=== PATIENT | female | born 1940 | race Caucasian/White ===

== ENCOUNTER 2023-01-05 17:07 | Inpatient (IN) ==
[2023-01-05] MEDS ORDERED: MoRPHine SULFATE 4 MG/ML 1 ML CARP\\VIAL IV PRN (17:23)
--- NOTE | 2023-01-05 17:24 | Emergency Department Note ---
Impression & Plan Closed left hip fracture, Hip pain, Ground-level fall ED Provider Note NAME: MUNDO BISWAS AGE: 82 SEX: F : 1940 ARRIVES VIA: Ambulance INFORMANT: Patient, ED PROVIDER(S): Frederic Ruiz MD CHIEF COMPLAINT: Fall, hip pain MEDICAL DECISION MAKING: Patient did present due to concern for fall and associated hip pain. IV was established blood work was obtained. Patient was ordered IV pain medication. The patient does have an allergy to morphine thus was given IV fentanyl. Patient did receive IV pain medication. The patient has a normal white count hemoglobin and platelet count. Kidney function is grossly un remarkable. COVID-negative. Patient did not sound to have significant head strike but given that patient's age CT of the head was also ordered. CT of the head is negative. Patient does have nondisplaced intertrochanteric fracture of the left femur. I did inform the patient as well as the patient's family member at bedside of the findings. I did speak with the on-call hospitalist service Dr. Gonzalez and the patient was admitted to the medicine service Prior /Outside records reviewed: None Differential diagnosis: Fracture, subluxation, dislocation, contusion, ligamentous injury, neurovas cular, compartment syndrome, rhabdomyolysis, as well as other pathologies. Diagnostics, as interpreted by me: ECG: Normal sinus rhythm, rate of 70 normal intervals normal axis no ST elevations, T wave version V2 noted. Cardiac monitoring: An order was placed for continuous cardiac monitoring. The monitor shows a rate of 75 with sinus rhythm. Patient was placed on pulse oximetry Medical decision rules: None Imaging studies: See below I informally reviewed the patient's left hip x-ray which does show a left intertrochanteric fracture. HPI: Patient presents due to concern for ground-level fall. The patient states that she was at home as she was trying to go get things for the birds outdoors and slipped in her clogs on a hardwood floor and fell on her left side. Patient denies any chest pains or shortness of breath. The patient does not think that she struck her head but was unsure. Patient denies any current chest pains or shortness of breath. No nausea vomiting or diarrhea. The patient did receive IV fentanyl prior to arrival. Patient states that her pain is improved but it is worse if she shifts around her to bed. Patient denies any LOC. PAST MEDICAL HISTORY: See Below PAST SURGICAL HISTORY: See Below SOCIAL HISTORY: See Below HOME MEDICATIONS: See Below ALLERGIES: See Below VITALS: See Below PHYSICAL EXAMINATION: GENERAL: NAD, non-toxic. EYE EXAM: Normal conjunctiva. PERRL, no anisocoria and EOM's grossly intact w/o pain. NECK: Supple, no nuchal rigidity, no adenopathy, non-tender. No signs of meningismus. FROM of the neck with good chin to chest and neck extension. No stridor. LUNGS: Clear to auscultation. Normal chest wall mechanics. HEART: NSR, no MRG. ABDOMEN: Abdomen soft, non-tender, no masses, no rebound or guarding. BACK: No CVA TTP. SKIN: No rashes and no bruising. UPPER EXTREMITIES: Upper extremities are grossly normal. LOWER EXTREMITIES: Decreased range of motion of left lower extremity, pain noted over the left hip, neurovascular intact distally several skin tears noted but no obvious laceration that required repair to the bilateral lower extremities. No significant reproducible pain to the knees shins or feet or ankles bilaterally. Neurovascular intact. NEURO EXAM: A&O x3, cranial nerves II-XII grossly intact, normal speech, moves all 4 extremities. 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 Required: No Beliefs That Will Affect Care: None Current Living Situation: Spouse Current Living Situation Comment: Lives at home with disabled Other Information That Helps Us Care for You: No Feels Safe at Home: Yes Safety Concerns: Feels Safe At This Time Assistive Devices: None Allergies Allergies Allergy/AdvReac Type Severity Reaction Status Date / Time vancomycin Allergy Rash Verified 01/05/23 18:49 lisinopril AdvReac Severe FACIAL Verified 01/07/23 14:06 SWELLING Home Meds Home Medications Medication Instructions Recorded Confirmed aspirin 81 mg capsule 81 mg PO DAILY 01/05/23 01/05/23 losartan 100 mg tablet 100 mg PO QAM 01/05/23 01/05/23 nifedipine 60 mg tablet,extended 60 mg PO QPM 01/05/23 01/05/23 release 24 hr pantoprazole 20 mg tablet,delayed 20 mg PO QAM 01/05/23 01/05/23 release simvastatin 40 mg tablet 40 mg PO HS 01/05/23 01/05/23 Results & Data (ED) Vital Signs Vital Signs - 24 hr 01/05/23 17:11 Pulse Rate 77 Home Medications Current Medication List: was personally reviewed by me Laboratory Data Attestation: I reviewed the patient's lab results. 01/12/23 08:01 01/12/23 08:01 Lab Results 01/05/23 01/05/23 01/05/23 Range/Units 17:16 17:16 17:16 WBC 7.95 (4.8-10.8) K/ul RBC 4.14 L (4.20-5.40) M/uL Hgb 12.7 (12.0-16.0) g/dl Hct 38.6 (37.0-47.0) % MCV 93.2 (80.0-100.0) fL MCH 30.7 (25.0-34.0) pg MCHC 32.9 (32.0-36.0) g/dL RDW Std Deviation 55.4 H (36.4-46.3) fL RDW Coeff of Ministerio 16.3 H (11.5-14.5) % Plt Count 373 (130-400) K/uL MPV 9.3 L (9.4-12.4) fL Immature Gran % (Auto) 0.1 % Neut % (Auto) 50.7 % Lymph % (Auto) 31.6 % [place] % (Auto) 7.3 % Eos % (Auto) 9.8 % Baso % (Auto) 0.5 % Neut # (Auto) 4.03 (1.40-6.50) K/uL Lymph # (Auto) 2.51 (1.2-3.4) K/uL [place] # (Auto) 0.58 (0.11-0.59) K/uL Eos # (Auto) 0.78 H (0-0.50) K/uL Baso # (Auto) 0.04 (0-0.2) K/uL Immature Gran # (Auto) 0.01 (0.01-0.20) K/uL PT 10.3 (9.0-12.0) Seconds INR 0.9 (0.9-1.1) APTT 24.2 (21.0-31.0) Seconds PTT Ratio 0.9 Sodium 140 (136-145) mmol/L Potassium 4.0 (3.5-5.1) mmol/L Chloride 106 (98-107) mmol/L Carbon Dioxide 26 (21-32) mmol/L Anion Gap 8 (3-11) BUN 20 (6-23) mg/dl Creatinine 0.77 (0.6-1.2) mg/dl Est Cr Clr Drug Dosing 56.6 ml/min Est GFR ( Amer) 82.8 ml/min Est GFR (Non-Af Amer) 71.4 ml/min BUN/Creatinine Ratio 26.0 H (10-20) Glucose 110 H (70-99(Fasting)) mg/dl Calcium 8.5 L (8.6-10.3) mg/dl Total Bilirubin 0.3 (0.2-1.0) mg/dl AST 18 (13-39) U/L ALT 12 (7-52) U/L Alkaline Phosphatase 85 (34-104) U/L Total Protein 6.9 (6.0-8.3) gm/dl Albumin 3.8 (3.4-5.0) gm/dl Globulin 3.1 (2.5-4.0) gm/dl Albumin/Globulin Ratio 1.2 (0.9-2) SARS-CoV-2, RNA, NAAT (NEGATIVE) 01/05/23 Range/Units 17:28 WBC (4.8-10.8) K/ul RBC (4.20-5.40) M/uL Hgb (12.0-16.0) g/dl Hct (37.0-47.0) % MCV (80.0-100.0) fL MCH (25.0-34.0) pg MCHC (32.0-36.0) g/dL RDW Std Deviation (36.4-46.3) fL RDW Coeff of Ministerio (11.5-14.5) % Plt Count (130-400) K/uL MPV (9.4-12.4) fL Immature Gran % (Auto) % Neut % (Auto) % Lymph % (Auto) % [place] % (Auto) % Eos % (Auto) % Baso % (Auto) % Neut # (Auto) (1.40-6.50) K/uL Lymph # (Auto) (1.2-3.4) K/uL [place] # (Auto) (0.11-0.59) K/uL Eos # (Auto) (0-0.50) K/uL Baso # (Auto) (0-0.2) K/uL Immature Gran # (Auto) (0.01-0.20) K/uL PT (9.0-12.0) Seconds INR (0.9-1.1) APTT (21.0-31.0) Seconds PTT Ratio Sodium (136-145) mmol/L Potassium (3.5-5.1) mmol/L Chloride (98-107) mmol/L Carbon Dioxide (21-32) mmol/L Anion Gap (3-11) BUN (6-23) mg/dl Creatinine (0.6-1.2) mg/dl Est Cr Clr Drug Dosing ml/min Est GFR ( Amer) ml/min Est GFR (Non-Af Amer) ml/min BUN/Creatinine Ratio (10-20) Glucose (70-99(Fasting)) mg/dl Calcium (8.6-10.3) mg/dl Total Bilirubin (0.2-1.0) mg/dl AST (13-39) U/L ALT (7-52) U/L Alkaline Phosphatase (34-104) U/L Total Protein (6.0-8.3) gm/dl Albumin (3.4-5.0) gm/dl Globulin (2.5-4.0) gm/dl Albumin/Globulin Ratio (0.9-2) SARS-CoV-2, RNA, NAAT NEGATIVE (NEGATIVE) Administered Medications Aspirin (Aspirin 81 Mg Ectab) 81 mg PO BID [facility] Stop: 02/06/23 20:59 Last Admin: 01/12/23 09:07 Dose: 81 mg Documented By: Admin: 01/11/23 20:58 Dose: 81 mg Documented By: Admin: 01/11/23 08:55 Dose: 81 mg Documented By: Admin: 01/10/23 20:34 Dose: 81 mg Documented By: Admin: 01/10/23 07:27 Dose: 81 mg Documented By: Admin: 01/09/23 21:19 Dose: 81 mg Documented By: Admin: 01/09/23 08:33 Dose: 81 mg Documented By: Admin: 01/08/23 20:49 Dose: 81 mg Documented By: Admin: 01/08/23 08:21 Dose: 81 mg Documented By: Admin: 01/07/23 21:13 Dose: 81 mg Documented By: KIRA Furosemide (Furosemide 20 Mg Tab) [facility] [place]: 01/15/23 15:14 Last Admin: 01/12/23 16:18 Dose: 20 mg Documented By: SAMUEL Losartan Potassium (Losartan Potassium 50 Mg Tab) 50 mg PO [facility] Stop: 02/11/23 08:59 Last Admin: 01/12/23 09:12 Dose: Not Given Documented By: SAMUEL Metoprolol Tartrate (Metoprolol Tartrate 25 Mg Tab) 12.5 mg PO BID [facility] Stop: 02/11/23 08:59 Last Admin: 01/12/23 09:08 Dose: 12.5 mg Documented By: SAMUEL Ondansetron HCl (Ondansetron Inj 2 Mg/Ml 2 Ml Vial) 4 mg IV Q6H PRN PRN Reason: Nausea Stop: 02/04/23 20:56 Last Admin: 01/08/23 08:29 Dose: 4 mg Documented By: Admin: 01/07/23 09:46 Dose: 4 mg Documented By: Admin: 01/07/23 02:55 Dose: 4 mg Documented By: Admin: 01/06/23 20:06 Dose: 4 mg Documented By: Admin: 01/06/23 11:53 Dose: 4 mg Documented By: LIA Pantoprazole Sodium (Pantoprazole 40 Mg Tab) 40 mg PO QAM DARYL Stop: 02/05/23 08:59 Last Admin: 01/12/23 09:07 Dose: 40 mg Documented By: Admin: 01/11/23 08:55 Dose: 40 mg Documented By: Admin: 01/10/23 07:27 Dose: 40 mg Documented By: Admin: 01/09/23 08:32 Dose: 40 mg Documented By: Admin: 01/08/23 08:22 Dose: 40 mg Documented By: Admin: 01/07/23 09:45 Dose: 40 mg Documented By: Admin: 01/06/23 09:30 Dose: 40 mg Documented By: LIA Senna/Docusate Sodium (Docusate Sodium/Senna 50/8.6mg Tab) 2 tab PO DARYL Stop: 02/04/23 20:59 Last Admin: 01/11/23 20:58 Dose: 2 tab Documented By: Admin: 01/10/23 20:34 Dose: 2 tab Documented By: Admin: 01/09/23 21:19 Dose: 2 tab Documented By: Admin: 01/08/23 20:50 Dose: 2 tab Documented By: Admin: 01/07/23 21:08 Dose: 2 tab Documented By: Admin: 01/06/23 20:06 Dose: 2 tab Documented By: Admin: 01/05/23 21:35 Dose: Not Given Documented By: DINA Simvastatin (Simvastatin 40 Mg Tab) 40 mg PO DARYL Stop: 02/04/23 20:59 Last Admin: 01/11/23 20:58 Dose: 40 mg Documented By: Admin: 01/10/23 20:35 Dose: 40 mg Documented By: Admin: 01/09/23 21:20 Dose: 40 mg Documented By: Admin: 01/08/23 20:49 Dose: 40 mg Documented By: Admin: 01/07/23 21:09 Dose: 40 mg Documented By: Admin: 01/06/23 20:07 Dose: 40 mg Documented By: Admin: 01/05/23 21:36 Dose: 40 mg Documented By: DINA Vitamin D (Cholecalciferol 5,000 Units 125 Mcg Tab) 5,000 units PO QAM DARYL Stop: 02/08/23 08:59 Last Admin: 01/12/23 09:08 Dose: 5,000 units Documented By: Admin: 01/11/23 08:55 Dose: 5,000 units Documented By: Admin: 01/10/23 07:27 Dose: 5,000 units Documented By: Admin: 01/09/23 08:33 Dose: 5,000 units Documented By: SANDIP Discontinued Medications Acetaminophen (Acetaminophen 500 Mg Tab) 1,000 mg PO Q8H DARYL Stop: 02/05/23 04:59 Last Admin: 01/11/23 13:05 Dose: 1,000 mg Documented By: Admin: 01/11/23 05:23 Dose: 1,000 mg Documented By: Admin: 01/10/23 20:33 Dose: 1,000 mg Documented By: Admin: 01/10/23 12:25 Dose: 1,000 mg Documented By: Admin: 01/10/23 05:17 Dose: 1,000 mg Documented By: Admin: 01/09/23 21:19 Dose: 1,000 mg Documented By: Admin: 01/09/23 12:19 Dose: 1,000 mg Documented By: Admin: 01/09/23 05:31 Dose: 1,000 mg Documented By: Admin: 01/08/23 20:48 Dose: 1,000 mg Documented By: Admin: 01/08/23 12:54 Dose: 1,000 mg Documented By: Admin: 01/08/23 05:46 Dose: 1,000 mg Documented By: Admin: 01/07/23 21:06 Dose: 1,000 mg Documented By: Admin: 01/07/23 13:20 Dose: 1,000 mg Documented By: Admin: 01/07/23 05:51 Dose: 1,000 mg Documented By: Admin: 01/06/23 20:07 Dose: 1,000 mg Documented By: Admin: 01/06/23 13:42 Dose: 1,000 mg Documented By: Admin: 01/06/23 05:39 Dose: 1,000 mg Documented By: KSC Bupivacaine HCl (Bupivacaine 0.25% Pf 30 Ml Vial) Confirm Administered Dose 30 ml .ROUTE .STK-MED ONE Stop: 01/07/23 14:17 Last Admin: 01/07/23 15:43 Dose: Not Given Documented By: SAC Calcium Carbonate (Calcium Carbonate 500 Mg Chewable Tab) 1,500 mg PO NOW STA Stop: 01/07/23 16:52 Last Admin: 01/07/23 17:31 Dose: 500 mg Documented By: SED Enoxaparin Sodium (Enoxaparin Inj 40 Mg/0.4 Ml Syr) 40 mg SQ HS DARYL Stop: 02/04/23 20:59 Last Admin: 01/05/23 21:35 Dose: 40 mg Documented By: KSC Fentanyl Citrate (Fentanyl Citrate Pf 100 Mcg/2 Ml Vial) 50 mcg IV Q1H PRN PRN Reason: Pain Stop: 01/19/23 17:39 Last Admin: 01/05/23 19:03 Dose: 50 mcg Documented By: GELA Furosemide (Furosemide Inj 20 Mg/2 Ml Vial) 20 mg IV ONE ONE Stop: 01/11/23 10:33 Last Admin: 01/11/23 11:14 Dose: 20 mg Documented By: JESSICA Acetaminophen (Ofirmev) 1,000 mg in 100 mls @ 400 mls/hr IV NOW STA Stop: 01/05/23 17:54 Last Infusion: 01/05/23 18:46 Dose: 0 mls/hr Documented By: Admin: 01/05/23 18:16 Dose: 400 mls/hr Documented By: OSVALDO Cefazolin Sodium (Ancef 2000mg) 2,000 mg in 15 mls @ 3.75 mls/min IV PREOP DARYL; Protocol Stop: 01/08/23 05:59 Last Admin: 01/07/23 15:01 Dose: 3.75 mls/min Documented By: [id number] Cefazolin Sodium (Ancef 2000mg) 2,000 mg in 15 mls @ 3.75 mls/min IV Q8H DARYL; Protocol Stop: 01/08/23 06:18 Last Admin: 01/08/23 05:47 Dose: 3.75 mls/min Documented By: Admin: 01/07/23 21:15 Dose: 3.75 mls/min Documented By: RES Sodium Chloride (Nss 1000ml) 1,000 mls @ 80 mls/hr IV .[id number] DARYL Stop: 01/08/23 17:14 Last Infusion: 01/08/23 22:15 Dose: 0 mls/hr Documented By: Admin: 01/08/23 09:31 Dose: 80 mls/hr Documented By: Infusion: 01/08/23 07:45 Dose: 80 mls/hr Documented By: Admin: 01/08/23 05:47 Dose: Not Given Documented By: Admin: 01/07/23 19:15 Dose: 80 mls/hr Documented By: KIRA Magnesium Sulfate/Dextrose (Magnesium Sulfate / D5w) 1 gm in 100 mls @ 50 mls/hr IV ONE ONE Stop: 01/10/23 00:29 Last Infusion: 01/10/23 00:57 Dose: 0 mls/hr Documented By: Admin: 01/09/23 22:51 Dose: 50 mls/hr Documented By: MCKAY Famotidine 20 mg/ Syringe 5 mls @ 2.5 mls/min IV NOW STA Stop: 01/09/23 23:03 Last Admin: 01/09/23 23:17 Dose: 2.5 mls/min Documented By: MCKAY Potassium Chloride/Sodium Chloride (Normal Saline W/20 Meq Kcl) 20 meq in 1,000 mls @ 80 mls/hr IV .[id number] ONE; Protocol Stop: 01/10/23 11:45 Last Infusion: 01/10/23 12:19 Dose: 0 mls/hr Documented By: Infusion: 01/10/23 07:55 Dose: 80 mls/hr Documented By: Infusion: 01/10/23 07:22 Dose: 0 mls/hr Documented By: Admin: 01/10/23 00:06 Dose: 80 mls/hr Documented By: MCKAY Cefepime HCl 2,000 mg/ Syringe 20 mls @ 5 mls/min IV Q8H DARYL; Protocol Stop: 01/12/23 00:44 Last Admin: 01/11/23 16:38 Dose: 5 mls/min Documented By: Admin: 01/11/23 08:57 Dose: 5 mls/min Documented By: Admin: 01/11/23 01:31 Dose: 5 mls/min Documented By: Admin: 01/10/23 17:34 Dose: 5 mls/min Documented By: Admin: 01/10/23 08:07 Dose: 5 mls/min Documented By: Admin: 01/10/23 00:59 Dose: 5 mls/min Documented By: MCKAY Losartan Potassium (Losartan Potassium 50 Mg Tab) 100 mg PO QAM DARYL Stop: 02/05/23 08:59 Last Admin: 01/11/23 08:55 Dose: Not Given Documented By: Admin: 01/10/23 09:43 Dose: 100 mg Documented By: Admin: 01/09/23 08:32 Dose: 100 mg Documented By: Admin: 01/08/23 08:21 Dose: 100 mg Documented By: Admin: 01/07/23 09:44 Dose: 100 mg Documented By: Admin: 01/06/23 09:09 Dose: 100 mg Documented By: LIA Morphine Sulfate (Morphine Sulfate 2 Mg/Ml Carp) 2 mg IV Q3H PRN PRN Reason: Pain (1,2,3,4,5) & Pre PT Stop: 01/19/23 20:56 Last Admin: 01/05/23 21:36 Dose: 2 mg Documented By: DINA Morphine Sulfate (Morphine Sulfate 4 Mg/Ml 1 Ml Carp\Vial) 4 mg IV Q3H PRN PRN Reason: Pain (6,7,8,9,10) Stop: 01/19/23 20:56 Last Admin: 01/07/23 02:55 Dose: 4 mg Documented By: Admin: 01/06/23 09:09 Dose: 4 mg Documented By: Admin: 01/06/23 03:05 Dose: 4 mg Documented By: DINA Nifedipine (Nifedipine Extended Rel 30 Mg Tabcr) 60 mg PO QPM DARYL Stop: 02/04/23 20:59 Last Admin: 01/11/23 20:57 Dose: 60 mg Documented By: Admin: 01/10/23 20:34 Dose: 60 mg Documented By: Admin: 01/09/23 21:20 Dose: 60 mg Documented By: Admin: 01/08/23 20:50 Dose: 60 mg Documented By: Admin: 01/07/23 21:08 Dose: 60 mg Documented By: Admin: 01/06/23 20:07 Dose: 60 mg Documented By: Admin: 01/05/23 21:35 Dose: 60 mg Documented By: KSC Ondansetron HCl (Ondansetron Inj 2 Mg/Ml 2 Ml Vial) 4 mg IV ONCE PRN PRN Reason: PACU Use Only-Nausea/Vomiting Stop: 01/07/23 21:48 Last Admin: 01/07/23 16:16 Dose: 4 mg Documented By: SED Oxycodone HCl (Oxycodone Hcl Ir 5 Mg Tab (Immediate Release)) 5 mg PO Q4H PRN PRN Reason: Severe Pain (Scale 7, 8, 9,10) Stop: 01/19/23 20:56 Last Admin: 01/08/23 08:22 Dose: 5 mg Documented By: Admin: 01/08/23 04:18 Dose: 5 mg Documented By: Admin: 01/07/23 09:46 Dose: 5 mg Documented By: Admin: 01/06/23 20:07 Dose: 5 mg Documented By: Admin: 01/06/23 16:09 Dose: 5 mg Documented By: Admin: 01/06/23 05:38 Dose: 5 mg Documented By: KSC Potassium Chloride (Potassium Chloride Crtab 20 Meq Tabcr) 40 meq PO NOW STA Stop: 01/09/23 22:30 Last Admin: 01/09/23 22:50 Dose: 40 meq Documented By: GCB Potassium Chloride (Potassium Chloride Crtab 20 Meq Tabcr) 40 meq PO ONE ONE Stop: 01/12/23 09:11 Last Admin: 01/12/23 10:11 Dose: 40 meq Documented By: SMM Promethazine HCl (Promethazine Hcl Inj 25 Mg/Ml 1 Ml Vial) Confirm Administered Dose 25 mg .ROUTE .STK-MED ONE Stop: 01/07/23 17:09 Last Admin: 01/07/23 17:15 Dose: 6.25 mg Documented By: SED Tramadol HCl (Tramadol Hcl 50 Mg Tablet) 100 mg PO Q4H PRN PRN Reason: Pain Stop: 02/07/23 16:44 Last Admin: 01/10/23 07:26 Dose: 100 mg Documented By: Admin: 01/08/23 18:13 Dose: 100 mg Documented By: CMV Imaging Data Radiologist's Impression: Head CT 01/05/23 17:23 Exam(s): CT HEAD Without Contrast EXAM: CT Head Without Intravenous Contrast CLINICAL HISTORY: Reason for exam: fall hip/head pain. TECHNIQUE: Axial computed tomography images of the head/brain without intravenous contrast. Automated exposure control was utilized for the study. A dose lowering technique was utilized adhering to the principles of ALARA. COMPARISON: No relevant prior studies available. FINDINGS: Brain: No hemorrhage. No apparent acute cortical infarct. Involutional changes with small vessel disease. No mass lesion or midline shift. Ventricles: No hydrocephalus. Bones/joints: No acute fracture. Soft tissues: Unremarkable. Sinuses: No acute sinusitis. Mastoid air cells: No mastoid effusion. Orbits: Cataract surgery. IMPRESSION: No acute intracranial process. Electronically signed by: Ellen Jackson M.D. 01/05/23 19:08 PM Hip X-Ray 01/05/23 17:23 XR hip LT min 2V CLINICAL HISTORY: Left hip pain following fall. COMPARISON: None FINDINGS: There is an acute nondisplaced intertrochanteric fracture of the left femur. No additional fractures are identified. There are no osseous lesions. IMPRESSION: Acute nondisplaced intertrochanteric fracture of the left femur. ACT 112: Negative or not required by law. Electronically signed by: Flakito Pryor M.D. 01/05/2023 6:28 PM Discharge Plan Visit Data Chief Complaint: Hip Pain Stated Complaint: LEFT HIP PAIN, FELL ED Provider: Frederic Ruiz Discharge Problem: Closed left hip fracture, Hip pain, Ground-level fall Patient Disposition: Admitted As Inpatient Discharge Instructions Interventions: ED Discharge Assessment Last Done: 01/05/23 20:30
[2023-01-05 17:35] LABS: Basophils # (auto) 0.04 K/uL (0-0.2); Basophils % (auto) 0.5 %; Eosinophils # (auto) 0.78 K/uL (0-0.50); Eosinophils % (auto) 9.8 %; Hematocrit (blood only) 38.6 % (37.0-47.0); Hemoglobin 12.7 g/dl (12.0-16.0); Immature Granulocytes # (auto) 0.01 K/uL (0.01-0.20); Immature Granulocytes % (auto) 0.1 %; Lymphocytes # (auto) 2.51 K/uL (1.2-3.4); Lymphocytes % (auto) 31.6 %; Mean Corpuscular Hemoglobin 30.7 pg (25.0-34.0); Mean Corpuscular Hgb Conc 32.9 g/dL (32.0-36.0); Mean Corpuscular Volume 93.2 fL (80.0-100.0); Mean Platelet Volume 9.3 fL (9.4-12.4); Monocytes # (auto) 0.58 K/uL (0.11-0.59); Monocytes % (auto) 7.3 %; Neutrophils # (auto) 4.03 K/uL (1.40-6.50); Neutrophils % (auto) 50.7 %; Platelet Count 373 K/uL (130-400); RDW Coefficient of Variation 16.3 % (11.5-14.5); RDW Standard Deviation 55.4 fL (36.4-46.3); Red Blood Count 4.14 M/uL (4.20-5.40); White Blood Count 7.95 K/ul (4.8-10.8)
[2023-01-05] MEDS ORDERED: fentaNYL citrate PF 100 MCG/2 ML VIAL IV PRN (17:40)
[2023-01-05] MEDS ORDERED: ACETAMINOPHEN 1,000 MG/100 ML VIAL IV STA (17:40)
[2023-01-05 17:51] LABS: Albumin Globulin Ratio 1.2 (0.9-2); Albumin Level 3.8 gm/dl (3.4-5.0); Bilirubin,Total 0.3 mg/dl (0.2-1.0); Calcium 8.5 mg/dl (8.6-10.3); Creatinine Clr Calc Pharmacy 56.6 ml/min; Est GFR (African American) 82.8 ml/min; Est GFR (Non-African American) 71.4 ml/min; Globulin 3.1 gm/dl (2.5-4.0); Total Protein 6.9 gm/dl (6.0-8.3)
[2023-01-05 18:08] LABS: INR 0.9 (0.9-1.1); Partial Thromboplastin Ratio 0.9; Partial Thromboplastin Time 24.2 Seconds (21.0-31.0); Prothrombin Time 10.3 Seconds (9.0-12.0)
--- NOTE | 2023-01-05 18:29 | XRay Report ---
XR hip LT min 2V CLINICAL HISTORY: Left hip pain following fall. COMPARISON: None FINDINGS: There is an acute nondisplaced intertrochanteric fracture of the left femur. No additional fractures are identified. There are no osseous lesions. IMPRESSION: Acute nondisplaced intertrochanteric fracture of the left femur. ACT 112: Negative or not required by law. Electronically signed by: Flakito Pryor M.D. 01/05/2023 6:28 PM
--- NOTE | 2023-01-05 18:51 | History & Physical Report ---
Date of Service January 05, 2023 Assessment & Plan (1) Closed left hip fracture: Plan: Left intertrochanteric fracture after fall from a standing height. 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 She can climb a flight of stairs and regularly does laundry, vacuuming, etc without any concerning symptoms. She has had no prior reactions to anesthesia. She had a history of a provoked blood clot in the past when she was in her twenties and had no other issues charlene-operatively from this. Medications, labwork and EKG reviewed. She has an acceptable risk for perioperative complications given her age, but is otherwise healthy. She does have an increased risk of postoperative bleeding given baby aspirin use, which is being held. Cont standard DVT prophylaxis perioperatively. (2) HTN (hypertension): Plan: chronic, at goal. Recently changed from ACEI to losartan last week given ongoing issues with facial swelling thought to be an allergic reaction. This h as resolved. (3) COPD (chronic obstructive pulmonary disease): Plan: chronic, stable. Not typically on oxygen. No respiratory symptoms. She is quit from cigarettes after a 60 pack year smoking history. Declines inhaler therapy. (4) GERD (gastroesophageal reflux disease): Plan: chronic, stable. Cont pantoprazole per home regimen. DVT proph: Lovenox Full Code Dispo- med surg floor Her daughter was at bedside and assessment and plans were explained to she and the patient. All questions were answered to their satifaction. Jeimy Gonzalez DO [facility] Hospitalist History of Present Illness Chief Complaint: left hip pain Primary Care Provider: Nick Adamse 82 yo F presents after a fall from standing height at home and subsequent left hip fracture. On her indoor porch and slipped in her clogs on her hardwood floor. 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 She experienced no LOC. She denies any recent chest pain, shortness of breath, UTI symptoms, abd pain or other issues. Did she hit her head? What is her typical functional status? Recently switched from lisinopril to losartan Allergies Allergy/AdvReac Type Severity Reaction Status Date / Time vancomycin Allergy Rash Verified 01/05/23 18:49 lisinopril AdvReac Severe facial Uncoded 01/05/23 19:41 swelling Home Medications Medication Instructions Recorded Confirmed Type aspirin 81 mg capsule 81 mg PO DAILY 01/05/23 01/05/23 History losartan 100 mg tablet 100 mg PO QAM 01/05/23 01/05/23 History nifedipine 60 mg tablet,extended 60 mg PO QPM 01/05/23 01/05/23 History release 24 hr pantoprazole 20 mg tablet,delayed 20 mg PO QAM 01/05/23 01/05/23 History release simvastatin 40 mg tablet 40 mg PO HS 01/05/23 01/05/23 History Past Med/Surg History Medical History COPD (chronic obstructive pulmonary disease) GERD (gastroesophageal reflux disease) HTN (hypertension) Surgical History S/P appy S/P TETE (total abdominal hysterectomy) Status post right foot surgery Family History Mother Brain tumor Social History Smoking Status: Former smoker Tobacco Type: Cigarettes Hx Alcohol Use: Yes Preferred Language: Sinhala Current Living Situation: Spouse Feels Safe at Home: Yes Review of Systems Review of Systems: All systems were reviewed and negative except as indicated on HPI above. Physical Exam Physical Exam: CONSTITUTIONAL: WNWD, vitals as above, generally well-appearing, NAD EYES: EOMI bilaterally, PERRL, normal conjunctivae, no scleral icterus ENT: external ear and nose normal, oropharynx clear, no TM abnormality, no maxillary or ethmoid sinus tenderness NECK: trachea midline, no lymphadenopathy, normal thyroid RESPIRATORY: clear to auscultation bilaterally, no crackles, rales or wheezes, normal respiratory effort CARDIOVASCULAR: regular rate and rhythm, S1 and 2 heard without murmurs, gallops or rubs, no JVD, no peripheral edema CHEST: inspection of chest was normal GASTROINTESTINAL: normal bowel sounds, soft, nontender,ND , no guarding MUSCULOSKELETAL: strength 5/5 throughout, head is normocephalic and atraumatic, neck supple, normal palpation of chest wall without tenderness SKIN: warm and dry, no rashes NEUROLOGIC: patellar DTRs 2+ bilat. PERRL, EOMI, no facial palsy, no dysarthria. Touch, pain and proprioception normal. CN 2-12 grossly intact, no sensory deficit, normal cognition, normal speech, no tremor PSYCHIATRIC: alert cooperative and oriented to person, place and time. Euthymic mood, makes good eye contact, language grossly intact, recent and remote memory grossly intact. Results & Data Results & Data Vital Signs (Past 12 Hours) Vital Signs Temp Pulse Pulse Resp BP BP Pulse Ox 01/05/23 18:15 75 16 131/58 L 97 01/05/23 17:20 36.9 C 79 16 142/71 H 90 01/05/23 17:11 77 O2 Del Method O2 Flow Rate 01/05/23 18:15 Nasal Cannula 2 01/05/23 17:20 Room Air 01/05/23 17:11 Laboratory Results Short CBC 01/05/23 Range/Units 17:16 WBC 7.95 (4.8-10.8) K/ul Hgb 12.7 (12.0-16.0) g/dl Hct 38.6 (37.0-47.0) % Plt Count 373 (130-400) K/uL BMP 01/05/23 17:16 Sodium 140 Potassium 4.0 Chloride 106 Carbon Dioxide 26 BUN 20 Creatinine 0.77 Glucose 110 H Calcium 8.5 L Liver Function 01/05/23 Range/Units 17:16 Total Bilirubin 0.3 (0.2-1.0) mg/dl AST 18 (13-39) U/L ALT 12 (7-52) U/L Alkaline Phosphatase 85 (34-104) U/L Albumin 3.8 (3.4-5.0) gm/dl Diagnostic Findings Hip X-Ray 01/05/23 17:23 XR hip LT min 2V CLINICAL HISTORY: Left hip pain following fall. COMPARISON: None FINDINGS: There is an acute nondisplaced intertrochanteric fracture of the left femur. No additional fractures are identified. There are no osseous lesions. IMPRESSION: Acute nondisplaced intertrochanteric fracture of the left femur. ACT 112: Negative or not required by law. Electronically signed by: Flakito Pryor M.D. 01/05/2023 6:28 PM Code Status & VTE Plan VTE Prophylaxis Plan VTE Prophylaxis will be ordered: Yes
--- NOTE | 2023-01-05 19:08 | CT Scan Report ---
Exam(s): CT HEAD Without Contrast EXAM: CT Head Without Intravenous Contrast CLINICAL HISTORY: Reason for exam: fall hip/head pain. TECHNIQUE: Axial computed tomography images of the head/brain without intravenous contrast. Automated exposure control was utilized for the study. A dose lowering technique was utilized adhering to the principles of ALARA. COMPARISON: No relevant prior studies available. FINDINGS: Brain: No hemorrhage. No apparent acute cortical infarct. Involutional changes with small vessel disease. No mass lesion or midline shift. Ventricles: No hydrocephalus. Bones/joints: No acute fracture. Soft tissues: Unremarkable. Sinuses: No acute sinusitis. Mastoid air cells: No mastoid effusion. Orbits: Cataract surgery. IMPRESSION: No acute intracranial process. Electronically signed by: Ellen Jackson M.D. 01/05/23 19:08 PM
--- NOTE | 2023-01-05 19:39 | Communication Note ---
Date of Service: January 05, 2023 Imaging reviewed, pt has a displaced left IT femur fracture, will plan for left hip IM nail on 01/07. Formal consult to follow.
[2023-01-05] MEDS ORDERED: MAGNESIUM HYDROXIDE SUSP 30 ML UDC PO PRN (20:57)
[2023-01-05] MEDS ORDERED: POLYETHYLENE (MIRALAX) 17 GM PACK PO PRN (20:57)
[2023-01-05] MEDS ORDERED: bisacodyL 10 MG SUPP PR PRN (20:57)
[2023-01-05] MEDS ORDERED: NALOXONE HCL 0.4 MG/1 ML VIAL/CARP IV PRN (20:57)
[2023-01-05] MEDS ORDERED: MoRPHine SULFATE 2 MG/ML CARP IV PRN (20:57)
[2023-01-05] MEDS ORDERED: ENOXAPARIN INJ 40 MG/0.4 ML SYR SQ SCH (21:00)
[2023-01-05] MEDS: NIFEdipine EXTENDED REL 30 MG TABCR PO SCH (21:35)
[2023-01-05] MEDS: DOCUSATE SODIUM/SENNA 50/8.6MG TAB PO SCH (21:35)
[2023-01-05] MEDS: SIMVASTATIN 40 MG TAB PO SCH (21:36)
--- NOTE | 2023-01-05 21:47 | Anesthesiology Consultation ---
Date of Service January 05, 2023 Assessment & Plan (1) Encounter for pre-operative examination: Chart Review Chart Review: Acceptable Risk for Surgery History Height/Weight Height: 5 ft 6 in Weight: 73.1 kg Allergies Allergy/AdvReac Type Severity Reaction Status Date / Time vancomycin Allergy Rash Verified 01/05/23 18:49 lisinopril AdvReac Severe facial Uncoded 01/05/23 19:41 swelling Medications Home Medications Medication Instructions Recorded Confirmed Last Taken aspirin 81 mg capsule 81 mg PO DAILY 01/05/23 01/05/23 Unknown losartan 100 mg tablet 100 mg PO QAM 01/05/23 01/05/23 Unknown nifedipine 60 mg tablet,extended 60 mg PO QPM 01/05/23 01/05/23 Unknown release 24 hr pantoprazole 20 mg tablet,delayed 20 mg PO QAM 01/05/23 01/05/23 Unknown release simvastatin 40 mg tablet 40 mg PO HS 01/05/23 01/05/23 Unknown Active Medications Generic Name Dose Route Start Last Admin Trade Name Freq PRN Reason Stop Dose Admin Enoxaparin Sodium 40 mg 01/05/23 21:00 01/05/23 21:35 Enoxaparin Inj 40 Mg/0.4 Ml Syr SQ 02/04/23 20:59 40 mg HS DARYL Administration Morphine Sulfate 2 mg 01/05/23 20:57 01/05/23 21:36 Morphine Sulfate 2 Mg/Ml Carp IV 01/19/23 20:56 2 mg Q3H PRN Administration Pain (1,2,3,4,5) & Pre PT Nifedipine 60 mg 01/05/23 21:00 01/05/23 21:35 Nifedipine Extended Rel 30 Mg Tabcr PO 02/04/23 20:59 60 mg QPM DARYL Administration Senna/Docusate Sodium 2 tab 01/05/23 21:00 01/05/23 21:35 Docusate Sodium/Senna 50/8.6mg Tab PO 02/04/23 20:59 Not Given HS DARYL Simvastatin 40 mg 01/05/23 21:00 01/05/23 21:36 Simvastatin 40 Mg Tab PO 02/04/23 20:59 40 mg HS DARYL Administration Past Medical History Medical History COPD (chronic obstructive pulmonary disease) GERD (gastroesophageal reflux disease) HTN (hypertension) Past Family History Family History Mother Brain tumor Past Surgical History Surgical History S/P appy S/P TETE (total abdominal hysterectomy) Status post right foot surgery Social History Smoking Status: Former smoker Smoking End Date: 60 pack years Hx Alcohol Use: Yes Physical Exam Vital Signs Last Vital Signs Temp 36.9 C 01/05/23 17:20 Pulse 86 01/05/23 20:09 Resp 18 01/05/23 20:09 BP 120/84 01/05/23 20:09 Pulse Ox 95 01/05/23 20:09 O2 Del Method Nasal Cannula 01/05/23 18:15 O2 Flow Rate 2 01/05/23 18:15 Testing Laboratory Results 01/05/23 17:16 01/05/23 17:16 PT 10.3 Seconds (9.0-12.0) 01/05/23 17:16 INR 0.9 (0.9-1.1) 01/05/23 17:16 APTT 24.2 Seconds (21.0-31.0) 01/05/23 17:16 Electrocardiogram Date: 01/05/23 Findings: + NSR @ (70) and + poor R wave progression
[2023-01-05 23:27] LABS: Appearance Urine Clear (Clear); Bacteria Urine Automated Negative (Negative); Bilirubin Urine Negative (Negative); Blood Urine Trace (Negative); Color Urine Yellow; Epithelial Cell Urine Auto 0-5 /lpf (0-5); Glucose Urine UA Negative (Negative); Ketones Urine Negative (Negative); Leukocyte Esterase Urine 1+ (Negative); Nitrite Urine Negative (Negative); Protein Urine Negative (Negative); RBC Urine Automated 0-4 /hpf (0-4); Specific Gravity Urine 1.017 (1.000-1.030); Urobilinogen Urine Negative (Negative)
[2023-01-06] MEDS: MoRPHine SULFATE 4 MG/ML 1 ML CARP\\VIAL IV PRN ×2 (03:05→09:09)
[2023-01-06] MEDS: oxyCODONE HCL IR 5 MG TAB (IMMEDIATE RELEASE) PO PRN ×3 (05:38→20:07)
[2023-01-06] MEDS: ACETAMINOPHEN 500 MG TAB PO SCH ×3 (05:39→20:07)
[2023-01-06] MEDS ORDERED: ceFAZolin 2000MG 2,000 MG/15 ML SYR IV SCH (06:00)
[2023-01-06 07:21] LABS: Hematocrit (blood only) 32.5 % (37.0-47.0); Hemoglobin 10.7 g/dl (12.0-16.0); Mean Corpuscular Hemoglobin 30.8 pg (25.0-34.0); Mean Corpuscular Hgb Conc 32.9 g/dL (32.0-36.0); Mean Corpuscular Volume 93.7 fL (80.0-100.0); Mean Platelet Volume 9.1 fL (9.4-12.4); Platelet Count 298 K/uL (130-400); RDW Coefficient of Variation 16.3 % (11.5-14.5); RDW Standard Deviation 55.9 fL (36.4-46.3); Red Blood Count 3.47 M/uL (4.20-5.40)
[2023-01-06 07:45] LABS: BUN Creatinine Ratio 21.1 (10-20); Calcium 8.5 mg/dl (8.6-10.3); Creatinine Clr Calc Pharmacy 76.5 ml/min; Est GFR (African American) 99.4 ml/min; Est GFR (Non-African American) 85.7 ml/min; Potassium 4.2 mmol/L (3.5-5.1)
[2023-01-06] MEDS ORDERED: PANTOprazole 40 MG TAB PO SCH (09:00)
[2023-01-06] MEDS: LOSARTAN POTASSIUM 50 MG TAB PO SCH (09:09)
[2023-01-06] MEDS: PANTOprazole 40 MG TAB PO SCH (09:30)
[2023-01-06] MEDS: ONDANSETRON INJ 2 MG/ML 2 ML VIAL IV PRN ×2 (11:53→20:06)
--- NOTE | 2023-01-06 17:49 | Hospitalist Progress Note ---
Date of Service January 06, 2023 Assessment & Plan (1) Closed left hip fracture: Plan: Left intertrochanteric fracture after fall from a standing height. 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 She can climb a flight of stairs and regularly does laundry, vacuuming, etc without any concerning symptoms. She has had no prior reactions to anesthesia. She had a history of a provoked blood clot in the past when she was in her twenties and had no other issues charlene-operatively from this. Medications, labwork and EKG reviewed. She has an acceptable risk for perioperative complications given her age, but is otherwise healthy. She does have an increased risk of postoperative bleeding given baby aspirin use, which is being held. Cont standard DVT prophylaxis perioperatively. Plan for OR tomorrow AM with Dr. Robetrs. NPO @ [facility]. (2) HTN (hypertension): Plan: chronic, at goal. Recently changed from ACEI to losartan last week given ongoing issues with facial swelling thought to be an allergic reaction. This has resolved. (3) COPD (chronic obstructive pulmonary disease): Plan: chronic, stable. Not typically on oxygen. No respiratory symptoms. She is quit from cigarettes after a 60 pack year smoking history. Declines inhaler therapy. (4) GERD (gastroesophageal reflux disease): Plan: chronic, stable. Cont pantoprazole per home regimen. DVT proph: will hold Lovenox Full Code Dispo- med surg floor I spent a total of 45 minutes coordinating, documenting, and providing care for this patient excluding time spent in the performance of separately billed services. Admission and Anticipated Discharge Date Admission Date: January 05, 2023 Supervising Physician Co-Signing Physician Notes Patient was seen and examined independently. Chart reviewed. Case discussed with KIERRA Subjective Seen and examined in follow-up for hip fracture. Resting comfortably with pain medication although admittedly does not have much of an appetite. Hydrating on around with water at bedside. Updated on plan for surgery tomorrow. No other additional symptoms today. No fever, chills, headache, chest pain, shortness of breath, nausea, vomiting, abdominal pain, dysuria, diarrhea or constipation. Review of Systems Review of Systems: At least ten systems reviewed and negative except as noted in the HPI. Physical Exam Physical Exam: Gen: WD/WN, NAD, resting comfortably in bed, A&Ox3 HEENT: Normocephalic, atraumatic, conjunctivae moist, sclerae anicteric, mucous membranes moist Lung: Clear to Auscultation bilaterally, no wheezes/rales/rhonchi Heart: Regular rate, regular rhythm, no murmurs, rubs, or gallops Abdomen: Soft, NT, ND +BS x 4 Extremities: Left hip TTP. Touch, pain and proprioception normal. No edema Skin: Warm, no rash Results & Data Results & Data Vital Signs (Past 12 Hours) Vital Signs Temp Pulse Resp BP Pulse Ox O2 Del Method O2 Flow Rate 01/06/23 15:58 36.9 C 79 18 134/66 93 Nasal Cannula 2 01/06/23 08:31 Nasal Cannula 2 01/06/23 07:35 36.8 C 71 16 106/58 L 93 Nasal Cannula 2
[2023-01-06] MEDS: DOCUSATE SODIUM/SENNA 50/8.6MG TAB PO SCH (20:06)
[2023-01-06] MEDS: NIFEdipine EXTENDED REL 30 MG TABCR PO SCH (20:07)
[2023-01-06] MEDS: SIMVASTATIN 40 MG TAB PO SCH (20:07)
[2023-01-07] MEDS: MoRPHine SULFATE 4 MG/ML 1 ML CARP\\VIAL IV PRN (02:55)
[2023-01-07] MEDS: ONDANSETRON INJ 2 MG/ML 2 ML VIAL IV PRN ×2 (02:55→09:46)
--- NOTE | 2023-01-07 05:49 | Electrocardiogram Report ---
Test Reason : Blood Pressure : / mmHG Vent. Rate : 070 BPM Atrial Rate : 070 BPM P-R Int : 186 ms QRS Dur : 076 ms QT Int : 410 ms P-R-T Axes : 093 072 070 degrees QTc Int : 442 ms Normal sinus rhythm Septal infarct , age undetermined Abnormal ECG No previous ECGs available Confirmed by Konstantin Person ([id number]) on 01/07/2023 5:49:25 AM Referred By: REFERRED SELF Confirmed By:Konstantin Person
[2023-01-07] MEDS: ACETAMINOPHEN 500 MG TAB PO SCH ×3 (05:51→21:06)
[2023-01-07] MEDS ORDERED: ceFAZolin 2000MG 2,000 MG/15 ML SYR IV SCH (06:00)
[2023-01-07] MEDS ORDERED: ROPIVACAINE 0.5% 5 MG/ML 30 ML VIAL ONE (06:36)
[2023-01-07 07:34] LABS: Hematocrit (blood only) 32.9 % (37.0-47.0); Hemoglobin 10.7 g/dl (12.0-16.0); Mean Corpuscular Hemoglobin 30.8 pg (25.0-34.0); Mean Corpuscular Hgb Conc 32.5 g/dL (32.0-36.0); Mean Corpuscular Volume 94.8 fL (80.0-100.0); Platelet Count 297 K/uL (130-400); RDW Coefficient of Variation 15.9 % (11.5-14.5); RDW Standard Deviation 55.5 fL (36.4-46.3); Red Blood Count 3.47 M/uL (4.20-5.40); White Blood Count 8.67 K/ul (4.8-10.8)
[2023-01-07 07:53] LABS: Calcium 8.8 mg/dl (8.6-10.3); Creatinine Clr Calc Pharmacy 87.2 ml/min; Est GFR (African American) 103.7 ml/min; Est GFR (Non-African American) 89.5 ml/min; Potassium 3.6 mmol/L (3.5-5.1)
[2023-01-07 08:00] LABS: Prothrombin Time 10.7 Seconds (9.0-12.0)
[2023-01-07] MEDS: LOSARTAN POTASSIUM 50 MG TAB PO SCH (09:44)
[2023-01-07] MEDS: PANTOprazole 40 MG TAB PO SCH (09:45)
[2023-01-07] MEDS: oxyCODONE HCL IR 5 MG TAB (IMMEDIATE RELEASE) PO PRN (09:46)
[2023-01-07] MEDS ORDERED: ONDANSETRON INJ 2 MG/ML 2 ML VIAL IV PRN (13:48)
[2023-01-07] MEDS ORDERED: ATROPINE SULFATE 0.1 MG/ML 10ML SYR IV PRN (13:48)
[2023-01-07] MEDS ORDERED: ePHEDrine sulfate 50 MG/ML AMP IV PRN (13:48)
[2023-01-07] MEDS ORDERED: fentaNYL citrate PF 100 MCG/2 ML VIAL IV PRN (13:48)
[2023-01-07] MEDS ORDERED: BUPIVACAINE 0.5 % 5 MG/1 ML PF 10ML VIAL ONE (14:13)
[2023-01-07] MEDS ORDERED: fentaNYL citrate PF 100 MCG/2 ML VIAL ONE (14:16)
[2023-01-07] MEDS ORDERED: BUPIVACAINE 0.25% PF 30 ML VIAL ONE (14:16)
[2023-01-07] MEDS ORDERED: PROPOFOL IV EMULSION 10 MG/ML 20 ML VIAL IV ONE (14:17)
[2023-01-07] MEDS ORDERED: LIDOCAINE 2% 2 ML VIAL/AMP(20MG/ML) INFIL ONE (14:17)
--- NOTE | 2023-01-07 14:31 | Hospitalist Progress Note ---
Date of Service January 07, 2023 Assessment & Plan (1) Closed left hip fracture: Plan: Left intertrochanteric fracture after fall from a standing height. 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 She can climb a flight of stairs and regularly does laundry, vacuuming, etc without any concerning symptoms. She has had no prior reactions to anesthesia. She had a history of a provoked blood clot in the past when she was in her twenties and had no other issues charlene-operatively from this. Medications, labwork and EKG reviewed. She has an acceptable risk for perioperative complications given her age, but is otherwise healthy. She does have an increased risk of postoperative bleeding given baby aspirin use, which is being held. Cont standard DVT prophylaxis perioperatively. Plan for OR this afternoon Dr. Roberts. Continue n.p.o. for now (2) HTN (hypertension): Plan: chronic, at goal. Recently changed from ACEI to losartan last week given ongoing issues with facial swelling thought to be an allergic reaction. This has resolved. (3) COPD (chronic obstructive pulmonary disease): Plan: chronic, stable. Not typically on oxygen. No respiratory symptoms. She is quit from cigarettes after a 60 pack year smoking history. Declines inhaler therapy. (4) GERD (gastroesophageal reflux disease): Plan: chronic, stable. Cont pantoprazole per home regimen. DVT proph: will hold Lovenox preoperatively Full Code Dispo- med surg floor I spent a total of 35 minutes coordinating, documenting, and providing care for this patient excluding time spent in the performance of separately billed services. Admission and Anticipated Discharge Date Admission Date: January 05, 2023 Supervising Physician Co-Signing Physician Notes Patient was seen and examined after surgery. She appears well. Repeat labs tomorrow. Hold lovenox Subjective Seen and examined in follow-up for hip fracture. Resting comfortably with pain medication although feeling nauseated. No emesis since yesterday after breakfast. Daughter is at bedside. Pain is controlled in left hip for the most part except for intermittent shooting pain. Awaiting OR this afternoon. No fever, chills, headache, chest pain, shortness of breath, abdominal pain, diarrhea or constipation. Brown catheter in place. Review of Systems Review of Systems: At least ten systems reviewed and negative except as noted in the HPI. Physical Exam Physical Exam: Gen: WD/WN, NAD, resting comfortably in bed, A&Ox3 HEENT: Normocephalic, atraumatic, conjunctivae moist, sclerae anicteric, mucous membranes moist Lung: Clear to Auscultation bilaterally, no wheezes/rales/rhonchi Heart: Regular rate, regular rhythm, no murmurs, rubs, or gallops Abdomen: Soft, NT, ND +BS x 4 Extremities: Left lateral hip TTP with some deformity noted. Sensation intact. Mild edema Skin: Warm, no rash Results & Data Results & Data Vital Signs (Past 12 Hours) Vital Signs Temp Pulse Resp BP Pulse Ox O2 Del Method O2 Flow Rate 01/07/23 14:01 37 C 96 H 18 117/53 L 91 Nasal Cannula 3 01/07/23 09:46 Nasal Cannula 3 01/07/23 07:43 36.8 C 97 H 18 145/69 H 92 Nasal Cannula 3 Laboratory Results Short CBC 01/07/23 Range/Units 06:34 WBC 8.67 (4.8-10.8) K/ul Hgb 10.7 L (12.0-16.0) g/dl Hct 32.9 L (37.0-47.0) % Plt Count 297 (130-400) K/uL BMP 01/07/23 06:34 Sodium 137 Potassium 3.6 Chloride 101 Carbon Dioxide 29 BUN 6 Creatinine 0.50 L Glucose 86 Calcium 8.[address] 01/05/23 17:23 Exam(s): CT HEAD Without Contrast EXAM: CT Head Without Intravenous Contrast CLINICAL HISTORY: Reason for exam: fall hip/head pain. TECHNIQUE: Axial computed tomography images of the head/brain without intravenous contrast. Automated exposure control was utilized for the study. A dose lowering technique was utilized adhering to the principles of ALARA. COMPARISON: No relevant prior studies available. FINDINGS: Brain: No hemorrhage. No apparent acute cortical infarct. Involutional changes with small vessel disease. No mass lesion or midline shift. Ventricles: No hydrocephalus. Bones/joints: No acute fracture. Soft tissues: Unremarkable. Sinuses: No acute sinusitis. Mastoid air cells: No mastoid effusion. Orbits: Cataract surgery. IMPRESSION: No acute intracranial process. Electronically signed by: Ellen Jackson M.D. 01/05/23 19:08 PM Hip X-Ray 01/05/23 17:23 XR hip LT min 2V CLINICAL HISTORY: Left hip pain following fall. COMPARISON: None FINDINGS: There is an acute nondisplaced intertrochanteric fracture of the left femur. No additional fractures are identified. There are no osseous lesions. IMPRESSION: Acute nondisplaced intertrochanteric fracture of the left femur. ACT 112: Negative or not required by law. Electronically signed by: Flakito Pryor M.D. 01/05/2023 6:28 PM
--- NOTE | 2023-01-07 14:51 | History & Physical Bridge Note ---
Date of Service January 07, 2023 History & Physical Bridge Note I have examined the patient, reviewed the History & Physical and in the interval since the performance of the History & Physical I have noted the following changes of clinical significance: no changes noted. Had a discussion regrading risks/benefits of left hip IM Nail. These include: infection, neurovascular injury, dvt, nonunion, malunion, future surgery. After reviewing she has elected to proceed with surgical intervention and written consent was obtained.
--- NOTE | 2023-01-07 16:05 | Post Operative Brief Note ---
Immediate Post Op Note v1 Date of Surgery January 07, 2023 Pre & Post Diagnosis Operation Date: 01/07/23 14:00 Pre-Op Diagnosis: Closed left hip fracture. Post-Op Diagnosis: Closed left hip fracture. I identified the patient and participated in the time-out.: Yes Procedure Operation Date: 01/07/23 14:00 Actual Procedures p Left Hip Intramedullary Nail(Left) - Ritesh Roberts DO Surgeon Ritesh Roberts DO Printer Machine None Estimated Blood Loss 50 Findings Consistent with Post-Op Diagnosis See dictation Drains Brown Catheter Complications None
--- NOTE | 2023-01-07 16:05 | Orthopedic Consultation ---
Date of Consultation January 07, 2023 Assessment & Plan (1) Closed left hip fracture: 82-year-old female with displaced left intertrochanteric femur fracture Nonweightbearing left lower extremity Bedrest Pain control Hold DVT prophylaxis for OR Medical management Antibiotics will hold OR Plan for left hip cephalomedullary nail History of Present Illness Reason for Consultation: Left intertrochanteric femur fracture Attending Physician: Lelia Morel MD History of Present Illness 82-year-old female presenting after sustaining a ground-level fall at home with a chief complaint of left hip pain and inability to ambulate. Radiographs were obtained in the emergency department which demonstrated displaced left intertrochanteric femur fracture. She was admitted to medical service and orthopedics was consulted for operative management. Allergies Allergy/AdvReac Type Severity Reaction Status Date / Time vancomycin Allergy Rash Verified 01/05/23 18:49 lisinopril AdvReac Severe FACIAL Verified 01/07/23 14:06 SWELLING Home Medications Medication Instructions Recorded Confirmed Type aspirin 81 mg capsule 81 mg PO DAILY 01/05/23 01/05/23 History losartan 100 mg tablet 100 mg PO QAM 01/05/23 01/05/23 History nifedipine 60 mg tablet,extended 60 mg PO QPM 01/05/23 01/05/23 History release 24 hr pantoprazole 20 mg tablet,delayed 20 mg PO QAM 01/05/23 01/05/23 History release simvastatin 40 mg tablet 40 mg PO HS 01/05/23 01/05/23 History Patient History Medical History COPD (chronic obstructive pulmonary disease) GERD (gastroesophageal reflux disease) HTN (hypertension) Surgical History S/P appy S/P TETE (total abdominal hysterectomy) Status post right foot surgery Family History Mother Brain tumor Social History Smoking Status: Former smoker Tobacco Type: Cigarettes Smoking End Date: 60 pack years; Second Hand Exposure: No; Do You Dip or Chew Tobacco: No; Tobacco Cessation Education Requested by Patient: No Hx Alcohol Use: Yes Hx Substance Use: No Preferred Language: Amharic Communication Ability: Effective 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 Beliefs That Will Affect Care: None Current Living Situation: Spouse Current Living Situation Comment: Lives at home with disabled Other Information That Helps Us Care for You: No Feels Safe at Home: Yes Safety Concerns: Feels Safe At This Time Assistive Devices: None Physical Exam Constitutional: General: No acute distress, alert and oriented to person place and time Musculoskeletal: Left lower extremity -Shortened and externally rotated -Unable to straight leg raise, positive logroll -Sensation intact to light touch s/spn/dpn/t/s -Fires ta/ehl/gsc + dp/pt Results & Data Vital Signs (Past 12 Hours) Vital Signs Temp Pulse Resp BP Pulse Ox O2 Del Method O2 Flow Rate 01/07/23 14:01 37 C 96 H 18 117/53 L 91 Nasal Cannula 3 01/07/23 09:46 Nasal Cannula 3 01/07/23 07:43 36.8 C 97 H 18 145/69 H 92 Nasal Cannula 3 Diagnostic Findings 2 views of the left hip demonstrate a displaced left intertrochanteric femur fracture
--- NOTE | 2023-01-07 16:10 | Operative Report ---
Post Operative Report Pre & Post Diagnosis Operation Date: 01/07/23 14:00 Pre-Op Diagnosis: Closed left hip fracture. Post-Op Diagnosis: Closed left hip fracture. I identified the patient and participated in the time-out.: Yes Procedure Operation Date: 01/07/23 14:00 Actual Procedures p Left Hip Intramedullary Nail(Left) - Ritesh Roberts DO Surgeon Ritesh Roberts DO Fire Pilot None Estimated Blood Loss 50 Findings Consistent with Post-Op Diagnosis See dictation Specimens None Complications None Indications 82-year-old female who presented to the hospital after sustaining a ground-level fall at home onto her left side. She noted pain and inability to ambulate. Radiographs in the emergency department demonstrate displaced left intertrochanteric femur fracture. She was admitted to medical service and orthopedics was consulted for operative management. I met with the patient preoperatively. We had a lengthy discussion regarding risk benefits potential complications of left hip cephalomedullary nail. After reviewing these she elected to proceed with surgical intervention and written consent was obtained Description of Procedure Implants: Synthes TFNA 10 mm x 170 mm 130 degree, 105 mm fenestrated screw, 5 mm x 36 mm StarDrive locking screw Patient was appropriate identified in the preoperative holding area. She was then taken back to the operative suite where she received anesthesia as well as antibiotics per protocol. She was positioned supine on the fracture table. Using the assistance of the fracture table and fluoroscopy her fracture was reduced to a stable position. She was then prepped and draped in the standard orthopedic fashion and timeout was then performed. A 3 cm incision just superior to the tip of the trochanter was then made through the skin subcutane ous tissue and gluteal fascia. A threaded guidewire was then advanced into the tip of the trochanter and advanced into the medullary canal. Its position was confirmed on AP and lateral fluoroscopy. Canal opening reamer was then used to open the canal proximally. A 10 mm x 170 mm nail was then inserted. Proximal outrigger was attached. Once the nail was in satisfactory position incision was made through skin subcutaneous tissue and IT band fascia for the lag screw. Threaded guidewire was then inserted through the lateral cortex and advanced into the femoral head and a center center position just beneath the subchondral bone. Length was measured and 105 mm was selected. A lateral cortical reamer was first used followed by a tapered reamer set to 105 mm. 105 mm fenestrated screw was then inserted. The nail was then compressed and locked statically at the proximal aspect. Guidewire was then removed and attention was turned to the distal static interlock. Incision was made through skin and subcutaneous tissue and IT band fascia. Guide was advanced down to bone and a drill was used to drill bicortically. A 5 mm x 36 mm screw was then inserted. It was noted to have good bicortical purchase. The proximal aiming arm was then removed from the nail. Final radiographs were then obtained demonstrating satisfactory position of the fracture as well as the implant. Wounds were then copiously irrigated. Deep fascia was closed using 0 Vicryl suture followed by 2-0 Vicryl for subcutaneous tissue and haider for the skin. Sterile Silverlon dressing was placed. The patient tolerated the procedure well was taken the recovery room in hemodynamically stable condition I attest to the content of the Intraoperative Record and any orders documented therein. Any exceptions are noted below.
--- NOTE | 2023-01-07 16:47 | Fluoroscopy Report ---
FL hip LT 2-3V CLINICAL HISTORY: LEFT HIP INTRAMEDULLARY NAIL TECHNIQUE: 5 views were obtained with the C-arm in the OR with the above procedure. Total fluoroscopy time was 1 minute 16 seconds. Radiation dose was 15.84 mGy. Comparison: None available at the time of this dictation. FINDINGS/IMPRESSION: Intraoperative images were obtained of trochanteric nail placement. Please correlate with intraoperative fluoroscopy and operative report. ACT 112: Negative or not required by law. Electronically signed by: Dev Contreras M.D. 01/07/2023 4:46 PM
[2023-01-07] MEDS ORDERED: CALCIUM CARBONATE 500 MG CHEWABLE TAB PO STA (16:51)
[2023-01-07] MEDS ORDERED: PROMETHAZINE HCL INJ 25 MG/ML 1 ML VIAL ONE (17:08)
--- NOTE | 2023-01-07 17:17 | Anesthesiology Progress Note ---
Date of Service January 07, 2023 Anesthesia Post Procedure Vital Signs Vital Signs: Temp Pulse Pulse Pulse Resp BP BP 01/07/23 16:55 92 H 14 113/50 L 01/07/23 16:45 90 17 105/55 L 01/07/23 16:35 81 15 97/54 L 01/07/23 16:25 67 20 88/45 L 01/07/23 16:15 89 14 105/73 01/07/23 16:08 97.5 F L 92 H 18 111/50 L 01/07/23 14:01 98.6 F 96 H 18 117/53 L 01/07/23 09:46 01/07/23 07:43 98.2 F 97 H 18 145/69 H 01/06/23 20:00 01/06/23 20:11 97.7 F 90 16 139/73 Pulse Ox O2 Del Method O2 Flow Rate 01/07/23 16:55 95 Nasal Cannula 3 01/07/23 16:45 96 Nasal Cannula 3 01/07/23 16:35 96 Nasal Cannula 3 01/07/23 16:25 96 Nasal Cannula 3 01/07/23 16:15 99 Oxymask 4 01/07/23 16:08 98 Oxymask 6 01/07/23 14:01 91 Nasal Cannula 3 01/07/23 09:46 Nasal Cannula 3 01/07/23 07:43 92 Nasal Cannula 3 01/06/23 20:00 Nasal Cannula 2 01/06/23 20:11 96 Nasal Cannula 3 Pain Intensity Left Leg: Pain Intensity: 5 Transfer of Care Handoff Completed per policy Notes Mental Status: alert / awake / arousable and participated in evaluation Patient Amnestic to Procedure: Yes Nausea / Vomiting: adequately controlled Pain: adequately controlled Airway Patency, RR, SpO2: stable & adequate BP & HR: stable & adequate Hydration State: stable & adequate Neuraxial Anesthesia: was administered and sensory block is resolving Anesthetic Complications: no major complications apparent and Pt Satisfied with anesthetic care
[2023-01-07] MEDS: SODIUM CHLORIDE 0.9% 1000ML 1,000 ML IV SCH (19:15)
[2023-01-07] MEDS: DOCUSATE SODIUM/SENNA 50/8.6MG TAB PO SCH (21:08)
[2023-01-07] MEDS: NIFEdipine EXTENDED REL 30 MG TABCR PO SCH (21:08)
[2023-01-07] MEDS: SIMVASTATIN 40 MG TAB PO SCH (21:09)
[2023-01-07] MEDS: ASPIRIN 81 MG ECTAB PO SCH (21:13)
[2023-01-07] MEDS: ceFAZolin 2000MG 2,000 MG/15 ML SYR IV SCH (21:15)
[2023-01-08] MEDS: oxyCODONE HCL IR 5 MG TAB (IMMEDIATE RELEASE) PO PRN ×2 (04:18→08:22)
[2023-01-08] MEDS: ACETAMINOPHEN 500 MG TAB PO SCH ×3 (05:46→20:48)
[2023-01-08] MEDS: SODIUM CHLORIDE 0.9% 1000ML 1,000 ML IV SCH ×2 (05:47→09:31)
[2023-01-08] MEDS: ceFAZolin 2000MG 2,000 MG/15 ML SYR IV SCH (05:47)
[2023-01-08 06:40] LABS: Basophils # (auto) 0.03 K/uL (0-0.2); Basophils % (auto) 0.2 %; Eosinophils # (auto) 0.02 K/uL (0-0.50); Eosinophils % (auto) 0.1 %; Hematocrit (blood only) 33.1 % (37.0-47.0); Hemoglobin 10.8 g/dl (12.0-16.0); Immature Granulocytes # (auto) 0.06 K/uL (0.01-0.20); Immature Granulocytes % (auto) 0.4 %; Lymphocytes # (auto) 1.16 K/uL (1.2-3.4); Lymphocytes % (auto) 7.5 %; Mean Corpuscular Hemoglobin 31.3 pg (25.0-34.0); Mean Corpuscular Hgb Conc 32.6 g/dL (32.0-36.0); Mean Corpuscular Volume 95.9 fL (80.0-100.0); Mean Platelet Volume 9.9 fL (9.4-12.4); Monocytes # (auto) 1.08 K/uL (0.11-0.59); Monocytes % (auto) 6.9 %; Neutrophils # (auto) 13.19 K/uL (1.40-6.50); Neutrophils % (auto) 84.9 %; Platelet Count 285 K/uL (130-400); RDW Coefficient of Variation 15.5 % (11.5-14.5); RDW Standard Deviation 54.6 fL (36.4-46.3); Red Blood Count 3.45 M/uL (4.20-5.40); White Blood Count 15.54 K/ul (4.8-10.8)
[2023-01-08 07:13] LABS: BUN Creatinine Ratio 15.4 (10-20); Calcium 8.9 mg/dl (8.6-10.3); Creatinine Clr Calc Pharmacy 83.9 ml/min; Est GFR (African American) 102.4 ml/min; Est GFR (Non-African American) 88.4 ml/min; Potassium 3.7 mmol/L (3.5-5.1)
--- NOTE | 2023-01-08 08:10 | Orthopedic Progress Note ---
Will sign off, december f/u as outpt in 10-14 days. Date of Service January 08, 2023 Assessment & Plan (1) Closed left hip fracture: Plan: Postop day 1 status post left TFN PT/OT protocols. Weightbearing as tolerated. DVT prophylaxis-aspirin p.o. twice daily, SCDs Pain management as written. Leukocytosis-likely secondary to surgical stress. DC planning-patient may likely need a rehab stay prior to going home. Admission and Anticipated Discharge Date Admission Date: January 05, 2023 Subjective Postop day 1 Patient sitting up in bed awake and alert. States she feels sore all over. Having some pain in the operative hip. No other complaints at this time. Physical Exam Physical Exam: Silverlon dressings are intact. Mild drainage in the dressing window. No erythema around the dressing itself. Thigh is mildly swollen, soft, secondary to consistent from surgery. Calves are soft and nontender. Neurovascular intact. Toes are mobile. Results & Data Vital Signs (Past 12 Hours) Vital Signs Temp Pulse Resp BP BP Pulse Ox Pulse Ox 01/08/23 07:19 36.4 C L 104 H 16 142/68 H 94 01/08/23 04:15 37.2 C 106 H 18 132/59 L 91 01/08/23 00:46 76 94 01/07/23 21:06 01/07/23 21:06 91 01/07/23 21:17 36.7 C 105 H 18 121/57 L 91 01/07/23 20:18 37.0 C 100 H 20 137/66 96 O2 Del Method O2 Del Method O2 Flow Rate O2 Flow Rate 01/08/23 07:19 Nasal Cannula 4 01/08/23 04:15 Nasal Cannula 4 01/08/23 00:46 Nasal Cannula 1 01/07/23 21:06 Nasal Cannula 4 01/07/23 21:06 Nasal Cannula 4 01/07/23 21:17 Nasal Cannula 4 01/07/23 20:18 Nasal Cannula 4 Laboratory Results Laboratory Results WBC 15.54 K/ul (4.8-10.8) H 01/08/23 06:07 RBC 3.45 M/uL (4.20-5.40) L 01/08/23 06:07 Hgb 10.8 g/dl (12.0-16.0) L 01/08/23 06:07 Hct 33.1 % (37.0-47.0) L 01/08/23 06:07 MCV 95.9 fL (80.0-100.0) 01/08/23 06:07 MCH 31.3 pg (25.0-34.0) 01/08/23 06:07 MCHC 32.6 g/dL (32.0-36.0) 01/08/23 06:07 RDW Std Deviation 54.6 fL (36.4-46.3) H 01/08/23 06:07 RDW Coeff of Ministerio 15.5 % (11.5-14.5) H 01/08/23 06:07 Plt Count 285 K/uL (130-400) 01/08/23 06:07 MPV 9.9 fL (9.4-12.4) 01/08/23 06:07 Immature Gran % (Auto) 0.4 % 01/08/23 06:07 Neut % (Auto) 84.9 % 01/08/23 06:07 Lymph % (Auto) 7.5 % 01/08/23 06:07 [place] % (Auto) 6.9 % 01/08/23 06:07 Eos % (Auto) 0.1 % 01/08/23 06:07 Baso % (Auto) 0.2 % 01/08/23 06:07 Neut # (Auto) 13.19 K/uL (1.40-6.50) H 01/08/23 06:07 Lymph # (Auto) 1.16 K/uL (1.2-3.4) L 01/08/23 06:07 [place] # (Auto) 1.08 K/uL (0.11-0.59) H 01/08/23 06:07 Eos # (Auto) 0.02 K/uL (0-0.50) 01/08/23 06:07 Baso # (Auto) 0.03 K/uL (0-0.2) 01/08/23 06:07 Immature Gran # (Auto) 0.06 K/uL (0.01-0.20) 01/08/23 06:07 PT 10.7 Seconds (9.0-12.0) 01/07/23 06:34 INR 1.0 (0.9-1.1) 01/07/23 06:34 APTT 24.2 Seconds (21.0-31.0) 01/05/23 17:16 PTT Ratio 0.9 01/05/23 17:16 Sodium 138 mmol/L (136-145) 01/08/23 06:07 Potassium 3.7 mmol/L (3.5-5.1) 01/08/23 06:07 Chloride 101 mmol/L (98-107) 01/08/23 06:07 Carbon Dioxide 24 mmol/L (21-32) 01/08/23 06:07 Anion Gap 13 (3-11) H 01/08/23 06:07 BUN 8 mg/dl (6-23) 01/08/23 06:07 Creatinine 0.52 mg/dl (0.6-1.2) L 01/08/23 06:07 Est Cr Clr Drug Dosing 83.9 ml/min 01/08/23 06:07 Est GFR ( Amer) 102.4 ml/min 01/08/23 06:07 Est GFR (Non-Af Amer) 88.4 ml/min 01/08/23 06:07 BUN/Creatinine Ratio 15.4 (10-20) 01/08/23 06:07 Glucose 88 mg/dl (70-99(Fasting)) 01/08/23 06:07 Calcium 8.9 mg/dl (8.6-10.3) 01/08/23 06:07 Total Bilirubin 0.3 mg/dl (0.2-1.0) 01/05/23 17:16 AST 18 U/L (13-39) 01/05/23 17:16 ALT 12 U/L (7-52) 01/05/23 17:16 Alkaline Phosphatase 85 U/L (34-104) 01/05/23 17:16 Total Protein 6.9 gm/dl (6.0-8.3) 01/05/23 17:16 Albumin 3.8 gm/dl (3.4-5.0) 01/05/23 17:16 Globulin 3.1 gm/dl (2.5-4.0) 01/05/23 17:16 Albumin/Globulin Ratio 1.2 (0.9-2) 01/05/23 17:16 Urine Color Yellow 01/05/23 23:00 Urine Appearance Clear (Clear) 01/05/23 23:00 Urine pH 5.0 (4.5-7.5) 01/05/23 23:00 Ur Specific [place] 1.017 (1.000-1.030) 01/05/23 23:00 Urine Protein Negative (Negative) 01/05/23 23:00 Urine Glucose (UA) Negative (Negative) 01/05/23 23:00 Urine Ketones Negative (Negative) 01/05/23 23:00 Urine Blood Trace (Negative) H 01/05/23 23:00 Urine Nitrite Negative (Negative) 01/05/23 23:00 Urine Bilirubin Negative (Negative) 01/05/23 23:00 Urine Urobilinogen Negative (Negative) 01/05/23 23:00 Ur Leukocyte Esterase 1+ (Negative) H 01/05/23 23:00 Urine WBC (Auto) 10-30 /hpf (0-5) H 01/05/23 23:00 Urine RBC (Auto) 0-4 /hpf (0-4) 01/05/23 23:00 U Hyaline Cast (Auto) 1-5 /lpf (0-5) 01/05/23 23:00 U Epithel Cells (Auto) 0-5 /lpf (0-5) 01/05/23 23:00 Urine Bacteria (Auto) Negative (Negative) 01/05/23 23:00 SARS-CoV-2, RNA, NAAT NEGATIVE (NEGATIVE) 01/05/23 17:28 Blood Type A Positive 01/05/23 21:05 Blood Type Recheck A Positive 01/06/23 07:07 Antibody Screen NEGATIVE 01/05/23 21:05 Impressions Hip X-Ray 01/07/23 14:00 FL hip LT 2-3V CLINICAL HISTORY: LEFT HIP INTRAMEDULLARY NAIL TECHNIQUE: 5 views were obtained with the C-arm in the OR with the above procedure. Total fluoroscopy time was 1 minute 16 seconds. Radiation dose was 15.84 mGy. Comparison: None available at the time of this dictation. FINDINGS/IMPRESSION: Intraoperative images were obtained of trochanteric nail placement. Please correlate with intraoperative fluoroscopy and operative report. ACT 112: Negative or not required by law. Electronically signed by: Dev Contreras M.D. 01/07/2023 4:46 PM
[2023-01-08] MEDS: ASPIRIN 81 MG ECTAB PO SCH ×2 (08:21→20:49)
[2023-01-08] MEDS: LOSARTAN POTASSIUM 50 MG TAB PO SCH (08:21)
[2023-01-08] MEDS: PANTOprazole 40 MG TAB PO SCH (08:22)
[2023-01-08] MEDS: ONDANSETRON INJ 2 MG/ML 2 ML VIAL IV PRN (08:29)
[2023-01-08] MEDS ORDERED: traMADol HCL 50 MG TABLET PO PRN (16:42)
[2023-01-08] MEDS: traMADol HCL 50 MG TABLET PO PRN (18:13)
--- NOTE | 2023-01-08 19:02 | Hospitalist Progress Note ---
Date of Service January 08, 2023 Assessment & Plan (1) Closed left hip fracture: Plan: status post IM nail 01/07 discontinue oxycodone, switch to tramadol 50-100mg Q4 PRN for mod-severe pain scheduled tylenol (2) HTN (hypertension): Plan: chronic, at goal. (3) COPD (chronic obstructive pulmonary disease): Plan: chronic, stable. Not typically on oxygen. No respiratory symptoms. She is quit from cigarettes after a 60 pack year smoking history. Declines inhaler therapy. (4) GERD (gastroesophageal reflux disease): Plan: chronic, stable. Cont pantoprazole per home regimen. DVT proph:aspirin BID for DVT ppx per ortho Admission and Anticipated Discharge Date Admission Date: January 05, 2023 Subjective Per nursing, patient was very drowsy with oxycodone, had difficulty staying awake Patient feels well otherwise Got out of bed once today Review of Systems Review of Systems: as above Physical Exam Physical Exam: Appears well, comfortable and pleasant Respiratory: breathing comfortably, no wheezing/rhonchi Cardiovascular: regular rate and rhythm, no murmurs/rubs Gastrointestinal (Abdomen): soft, non tender Musculoskeletal: left hip appears swollen, some bruising Neurologic: awake, alert, Results & Data Results & Data Vital Signs (Past 12 Hours) Vital Signs Temp Pulse Resp BP Pulse Ox Pulse Ox Pulse Ox 01/08/23 14:58 36.6 C 108 H 16 134/65 94 01/08/23 12:42 94 90 01/08/23 09:56 01/08/23 07:19 36.4 C L 104 H 16 142/68 H 94 Pulse Ox O2 Del Method O2 Flow Rate O2 Flow Rate 01/08/23 14:58 Nasal Cannula 4 01/08/23 12:42 80 L 4 01/08/23 09:56 Nasal Cannula 4 01/08/23 07:19 Nasal Cannula 4
[2023-01-08] MEDS: SIMVASTATIN 40 MG TAB PO SCH (20:49)
[2023-01-08] MEDS: NIFEdipine EXTENDED REL 30 MG TABCR PO SCH (20:50)
[2023-01-08] MEDS: DOCUSATE SODIUM/SENNA 50/8.6MG TAB PO SCH (20:50)
[2023-01-09] MEDS: ACETAMINOPHEN 500 MG TAB PO SCH ×3 (05:31→21:19)
[2023-01-09 07:03] LABS: Hematocrit (blood only) 29.4 % (37.0-47.0); Hemoglobin 9.7 g/dl (12.0-16.0); Mean Corpuscular Hemoglobin 31.5 pg (25.0-34.0); Mean Corpuscular Volume 95.5 fL (80.0-100.0); Mean Platelet Volume 9.7 fL (9.4-12.4); Platelet Count 254 K/uL (130-400); RDW Coefficient of Variation 15.4 % (11.5-14.5); RDW Standard Deviation 54.4 fL (36.4-46.3); Red Blood Count 3.08 M/uL (4.20-5.40); White Blood Count 15.31 K/ul (4.8-10.8)
[2023-01-09 07:27] LABS: BUN Creatinine Ratio 22.2 (10-20); Calcium 8.6 mg/dl (8.6-10.3); Creatinine Clr Calc Pharmacy 69.2 ml/min; Est GFR (African American) 96.1 ml/min; Est GFR (Non-African American) 82.9 ml/min; Potassium 3.7 mmol/L (3.5-5.1)
--- NOTE | 2023-01-09 08:28 | Orthopedic Progress Note ---
Date of Service January 09, 2023 Assessment & Plan (1) Closed left hip fracture: Plan: Postop day 2 status post left TFN PT/OT protocols. Weightbearing as tolerated. DVT prophylaxis-aspirin p.o. twice daily, SCDs Pain management as written. Leukocytosis-likely secondary to surgical stress. DC planning-patient may likely need a rehab stay prior to going home. Orthopedics will sign off at this time. Discharge instructions placed in the DC section. Follow-up with Dr. Roberts in 2 weeks from the day of surgery for wound check. Admission and Anticipated Discharge Date Admission Date: January 05, 2023 Subjective Postop day 2 Patient sitting up in bed awake and alert. No complaints this morning. Pain is controlled. She states that her hip is feeling a little bit better today. Physical Exam Physical Exam: Silverlon dressings intact. Thigh is soft and nontender. Calves are soft nontender. Neurovascular is intact. Toes are mobile of the left foot with good dorsiflexion and plantarflexion. Results & Data Vital Signs (Past 12 Hours) Vital Signs Temp Pulse Resp BP Pulse Ox Pulse Ox O2 Del Method 01/09/23 07:40 Nasal Cannula 01/09/23 07:14 36.6 C 95 H 16 100/56 L 94 Nasal Cannula 01/08/23 20:49 Nasal Cannula 01/08/23 20:49 94 01/08/23 21:35 36.4 C 101 H 18 117/56 L 94 Nasal Cannula O2 Del Method O2 Flow Rate O2 Flow Rate 01/09/23 07:40 4 01/09/23 07:14 4 01/08/23 20:49 4 01/08/23 20:49 Nasal Cannula 4 01/08/23 21:35 4
[2023-01-09] MEDS: PANTOprazole 40 MG TAB PO SCH (08:32)
[2023-01-09] MEDS: LOSARTAN POTASSIUM 50 MG TAB PO SCH (08:32)
[2023-01-09] MEDS: CHOLECALCIFEROL 5,000 UNITS 125 MCG TAB PO SCH (08:33)
[2023-01-09] MEDS: ASPIRIN 81 MG ECTAB PO SCH ×2 (08:33→21:19)
--- NOTE | 2023-01-09 11:00 | Hospitalist Progress Note ---
Date of Service January 09, 2023 Assessment & Plan (1) Closed left hip fracture: Plan: status post IM nail 01/07 discontinue oxycodone, switch to tramadol 50-100mg Q4 PRN for mod-severe pain scheduled tylenol Pain is well controlled currently (2) HTN (hypertension): Plan: chronic, at goal. Place hold parameters (3) COPD (chronic obstructive pulmonary disease): Plan: chronic, stable. Not typically on oxygen. No respiratory symptoms. 60 pack year smoking history. Declines inhaler therapy. (4) GERD (gastroesophageal reflux disease): Plan: chronic, stable. Cont pantoprazole per home regimen. Plan Disposition- will need rehab or SNF DVT proph:aspirin BID for DVT ppx per ortho Admission and Anticipated Discharge Date Admission Date: January 05, 2023 Subjective Patient worked with PT today, observed getting out of bed to chair with rolling walker. Very shaky and weak. At end of transfer, she felt light headed because she was holding her breath Patient was encouraged to take long, deep breaths. Encouraged to use incentive spirometry, she admits to forgetting. Still requiring 4L NC With ambulation, she appeared comfortable (from a pain perspective). Last tramadol dose noted to be yesterday at 6pm Review of Systems Review of Systems: as above Physical Exam Physical Exam: Appears stated age, weak and unsteady on her feet Respiratory: Diminished at bases, no wheezing/rhonchi Cardiovascular: Tachycardic (after transfer) but regular, no murmurs/rubs/gallops Gastrointestinal (Abdomen): soft, non tender, non distended Musculoskeletal: No edema Skin: fragile, thin Neurologic: awake, alert, spontaneously moving extremities Results & Data Results & Data Vital Signs (Past 12 Hours) Vital Signs Temp Pulse Resp BP Pulse Ox O2 Del Method O2 Flow Rate 01/09/23 07:40 Nasal Cannula 4 01/09/23 07:14 36.6 C 95 H 16 100/56 L 94 Nasal Cannula 4
[2023-01-09] MEDS: DOCUSATE SODIUM/SENNA 50/8.6MG TAB PO SCH (21:19)
[2023-01-09] MEDS: NIFEdipine EXTENDED REL 30 MG TABCR PO SCH (21:20)
[2023-01-09] MEDS: SIMVASTATIN 40 MG TAB PO SCH (21:20)
[2023-01-09] MEDS ORDERED: POTASSIUM CHLORIDE CRTAB 20 MEQ TABCR PO STA (22:29)
[2023-01-09] MEDS ORDERED: MAGNESIUM SULFATE / D5W 1 GM/100 ML BAG IV ONE (22:30)
[2023-01-09] MEDS ORDERED: FAMOTIDINE 20 MG in SYRINGE 3 ML IV STA (23:02)
[2023-01-09] MEDS ORDERED: NSS + 20MEQ KCL 20 MEQ/1,000 ML BAG IV ONE (23:16)
--- NOTE | 2023-01-09 23:24 | Communication Note ---
Date of Service: January 09, 2023 Patient noted to be slightly tachycardic as per RN. Heart rate 110s. Patient denies chest pain, SOB, cough, abdominal pain, dysuria, diarrhea, uncontrolled hip pain symptoms. Patient complaining of heartburn. WBC 15 Abnormal procalcitonin UA WBC AP Sepsis secondary to complicated UTI CS, Cefepime
[2023-01-09 23:46] LABS: Base Excess ABG 0.5 mEq/L (-9-1.8); HCO3 ABG 25 mmol/L (19-24); Oxygen Saturation ABG 90.5 % (90-95); PCO2 ABG 41 mmHg (35-46); PO2 ABG 54 mmHg (80-95)
[2023-01-10 00:13] LABS: Allen Test Pos (Pos)
[2023-01-10] MEDS: CEFEPIME 2,000 MG in SYRINGE 0 ML IV SCH ×3 (00:59→17:34)
[2023-01-10 01:50] LABS: Appearance Urine Cloudy (Clear); Bacteria Urine Automated Negative (Negative); Bilirubin Urine Negative (Negative); Blood Urine Trace (Negative); Color Urine Yellow; Epithelial Cell Urine Auto >30 /lpf (0-5); Glucose Urine UA Negative (Negative); Ketones Urine Trace (Negative); Leukocyte Esterase Urine 3+ (Negative); Nitrite Urine Negative (Negative); Protein Urine 1+ (Negative); Specific Gravity Urine 1.016 (1.000-1.030); Urobilinogen Urine Negative (Negative); WBC Urine Automated >30 /hpf (0-5); pH Urine 5.5 (4.5-7.5)
[2023-01-10] MEDS: ACETAMINOPHEN 500 MG TAB PO SCH ×3 (05:17→20:33)
[2023-01-10 06:52] LABS: Hematocrit (blood only) 25.6 % (37.0-47.0); Hemoglobin 8.4 g/dl (12.0-16.0); Mean Corpuscular Hemoglobin 30.8 pg (25.0-34.0); Mean Corpuscular Hgb Conc 32.8 g/dL (32.0-36.0); Mean Corpuscular Volume 93.8 fL (80.0-100.0); Mean Platelet Volume 9.8 fL (9.4-12.4); Platelet Count 280 K/uL (130-400); RDW Coefficient of Variation 14.9 % (11.5-14.5); RDW Standard Deviation 51.5 fL (36.4-46.3); Red Blood Count 2.73 M/uL (4.20-5.40); White Blood Count 14.02 K/ul (4.8-10.8)
[2023-01-10] MEDS: traMADol HCL 50 MG TABLET PO PRN (07:26)
[2023-01-10] MEDS: ASPIRIN 81 MG ECTAB PO SCH ×2 (07:27→20:34)
[2023-01-10] MEDS: PANTOprazole 40 MG TAB PO SCH (07:27)
[2023-01-10] MEDS: CHOLECALCIFEROL 5,000 UNITS 125 MCG TAB PO SCH (07:27)
--- NOTE | 2023-01-10 08:49 | XRay Report ---
XR chest 1V portable HISTORY: 82 years-old Female low o2 acute hypoxia COMPARISON: None TECHNIQUE: AP view of the chest FINDINGS: Cardiomediastinal and hilar silhouettes are within normal limits. Atherosclerosis of the aorta. Mild right hemidiaphragmatic elevation. No pneumothorax or overt pulmonary edema. Mild subsegmental bibasi lar densities. Blunting of the costophrenic angles. No large pleural effusion. Degenerative changes o f the shoulders and spine. IMPRESSION: 1. No airspace consolidation typical for pneumonia. 2. Mild subsegmental bibasilar atelectasis with equivocal trace pleural effusions. ACT 112: Negative or not required by law. The above report was generated using voice recognition software. It may contain grammatical, syntax o r spelling errors. Electronically signed by: Ritesh Pak M.D. 01/10/2023 8:48 AM
[2023-01-10] MEDS: LOSARTAN POTASSIUM 50 MG TAB PO SCH (09:43)
--- NOTE | 2023-01-10 10:47 | Electrocardiogram Report ---
Test Reason : Blood Pressure : / mmHG Vent. Rate : 115 BPM Atrial Rate : 115 BPM P-R Int : 164 ms QRS Dur : 088 ms QT Int : 330 ms P-R-T Axes : 077 074 044 degrees QTc Int : 456 ms Sinus tachycardia with Premature supraventricular complexes Low voltage QRS When compared with ECG of 05-JAN-2023 17:33, Premature supraventricular complexes are now Present Vent. rate has increased BY 45 BPM Criteria for Septal infarct are no longer Present Confirmed by Luis Carlos Jimenez ([id number]) on 01/10/2023 10:47:10 AM Referred By: REFERRED SELF Confirmed By:Luis Carlos Jimenez
--- NOTE | 2023-01-10 18:54 | Hospitalist Progress Note ---
Date of Service January 10, 2023 Assessment & Plan (1) Closed left hip fracture: Plan: status post IM nail 01/07 Continue tramadol as needed Appreciate orthopedics input Continue PT OT Needs follow-up with orthopedics upon discharge Bowel regimen to prevent constipation Possible UTI Urine, Blood culture pending Empirically on Rocephin (2) HTN (hypertension): Plan: chronic Continue lipid panel, losartan Monitor BP (3) COPD (chronic obstructive pulmonary disease): Plan: chronic, stable. Not typically on oxygen. No respiratory symptoms. 60 pack year smoking history. Declines inhaler therapy Wean off of supplemental oxygen to keep saturations 88 to 92% as able (4) GERD (gastroesophageal reflux disease): Plan: Continue pantoprazole Plan Disposition Rehab as able DVT Px: Aspirin BID for DVT px per ortho CODE STATUS Full code Admission and Anticipated Discharge Date Admission Date: January 05, 2023 Subjective Patient is seen and examined at bedside States having left hip pain at times radiating to left knee Denies any chest pain, shortness of breath, dizziness, nausea, abdominal pain Offers no other complaints Review of Systems Review of Systems: All systems reviewed & are unremarkable except as noted in Subjective Physical Exam Physical Exam: Physical Exam: Vitals signs as noted above General Appearance: Elderly, no apparent distress Head: normocephalic, Atraumatic Eyes: normal inspection, EOMI Neck: supple, Trachea midline Respiratory/Chest: Decreased breath sounds, CTA, No accessory muscle use Cardiovascular: S1, S2, No murmur Abdomen/GI:Soft, Non tender, Bowel sounds present Extremities/Musculoskeletal:normal inspection, Trace edema, left hip surgical site in dressing Neurologic/Psych:AAOX3, grossly no focal neurological deficits Skin: normal color, warm, + multiple bruises Results & Data Results & Data Vital Signs (Past 12 Hours) Vital Signs Temp Pulse Resp BP BP Pulse Ox Pulse Ox 01/10/23 17:45 105 H 18 116/62 91 01/10/23 15:50 92 H 92 01/10/23 14:58 36.8 C 93 H 16 95/52 L 89 L 01/10/23 12:07 88 L 01/10/23 07:45 01/10/23 07:45 90 01/10/23 07:36 36.8 C 96 H 16 114/64 94 O2 Del Method O2 Del Method O2 Flow Rate O2 Flow Rate FiO2 01/10/23 17:45 Nasal Cannula 2 0.5 01/10/23 15:50 Nasal Cannula 2.5 01/10/23 14:58 Nasal Cannula 2 01/10/23 12:07 01/10/23 07:45 Nasal Cannula 2.5 01/10/23 07:45 Nasal Cannula 2.5 01/10/23 07:36 Nasal Cannula 3 Laboratory Results Short CBC 01/10/23 Range/Units 06:30 WBC 14.02 H (4.8-10.8) K/ul Hgb 8.4 L (12.0-16.0) g/dl Hct 25.6 L (37.0-47.0) % Plt Count 280 (130-400) K/uL Urine 01/10/23 Range/Units 01:30 Urine Color Yellow Urine Appearance Cloudy A (Clear) Urine pH 5.5 (4.5-7.5) Ur Specific [place] 1.016 (1.000-1.030) Urine Protein 1+ H (Negative) Urine Glucose (UA) Negative (Negative)
[2023-01-10] MEDS: NIFEdipine EXTENDED REL 30 MG TABCR PO SCH (20:34)
[2023-01-10] MEDS: DOCUSATE SODIUM/SENNA 50/8.6MG TAB PO SCH (20:34)
[2023-01-10] MEDS: SIMVASTATIN 40 MG TAB PO SCH (20:35)
[2023-01-11] MEDS: CEFEPIME 2,000 MG in SYRINGE 0 ML IV SCH ×3 (01:31→16:38)
[2023-01-11] MEDS: ACETAMINOPHEN 500 MG TAB PO SCH ×2 (05:23→13:05)
[2023-01-11 08:13] LABS: Hematocrit (blood only) 26.5 % (37.0-47.0); Mean Corpuscular Hemoglobin 31.7 pg (25.0-34.0); Mean Corpuscular Volume 93.3 fL (80.0-100.0); Mean Platelet Volume 9.9 fL (9.4-12.4); Platelet Count 349 K/uL (130-400); RDW Coefficient of Variation 15.1 % (11.5-14.5); RDW Standard Deviation 52.1 fL (36.4-46.3); Red Blood Count 2.84 M/uL (4.20-5.40); White Blood Count 11.87 K/ul (4.8-10.8)
[2023-01-11 08:31] LABS: Calcium 8.5 mg/dl (8.6-10.3); Creatinine Clr Calc Pharmacy 87.2 ml/min; Est GFR (African American) 103.7 ml/min; Est GFR (Non-African American) 89.5 ml/min; Potassium 4.1 mmol/L (3.5-5.1)
[2023-01-11] MEDS: PANTOprazole 40 MG TAB PO SCH (08:55)
[2023-01-11] MEDS: LOSARTAN POTASSIUM 50 MG TAB PO SCH (08:55)
[2023-01-11] MEDS: CHOLECALCIFEROL 5,000 UNITS 125 MCG TAB PO SCH (08:55)
[2023-01-11] MEDS: ASPIRIN 81 MG ECTAB PO SCH ×2 (08:55→20:58)
[2023-01-11] MEDS ORDERED: FUROSEMIDE INJ 20 MG/2 ML VIAL IV ONE (10:32)
--- NOTE | 2023-01-11 16:46 | Hospitalist Progress Note ---
Date of Service January 11, 2023 Assessment & Plan (1) Closed left hip fracture: Plan: Closed left hip fracture S/P IM nail on 01/07 by Postoperative acute blood loss anemia Continue tramadol as needed Appreciate orthopedics input Continue PT OT Needs follow-up with orthopedics upon discharge Bowel regimen to prevent constipation Waiting for rehab placement Possible UTI Urine, Blood culture pending Empirically on Rocephin Follow-up cultures Sinus tachycardia Likely secondary to pain We will recheck EKG (2) HTN (hypertension): Plan: chronic Continue lipid panel, losartan Monitor BP (3) COPD (chronic obstructive pulmonary disease): Plan: chronic, stable. Not typically on oxygen. No respiratory symptoms. 60 pack year smoking history. Declines inhaler therapy Wean off of supplemental oxygen to keep saturations 88 to 92% as able Given a dose of Lasix given given rales on exam Monitor (4) GERD (gastroesophageal reflux disease): Plan: Continue pantoprazole Plan Disposition Rehab as able DVT Px: Aspirin BID for DVT px per ortho CODE STATUS Full code Admission and Anticipated Discharge Date Admission Date: January 05, 2023 Subjective Patient is seen and examined at bedside No new complaints Still has left hip pain at surgical site Updated patient's daughter over the phone Denies any chest pain, shortness of breath, dizziness, nausea, abdominal pain Review of Systems Review of Systems: All systems reviewed & are unremarkable except as noted in Subjective Physical Exam Physical Exam: Physical Exam: Vitals signs as noted above General Appearance: Elderly, no apparent distress Head: normocephalic, Atraumatic Eyes: normal inspection, EOMI Neck: supple, Trachea midline Respiratory/Chest: Decreased breath sounds, Basal Crackles, No accessory muscle use Cardiovascular: S1, S2, No murmur Abdomen/GI:Soft, Non tender, Bowel sounds present Extremities/Musculoskeletal:normal inspection, Trace edema, left hip surgical site in dressing Neurologic/Psych:AAOX3, grossly no focal neurological deficits Skin: normal color, warm, + multiple bruises Results & Data Results & Data Vital Signs (Past 12 Hours) Vital Signs Temp Pulse Resp BP Pulse Ox O2 Del Method O2 Flow Rate 01/11/23 14:57 36.6 C 112 H 16 105/54 L 94 Nasal Cannula 01/11/23 10:08 89 01/11/23 09:44 Nasal Cannula 2.5 01/11/23 09:13 104 H Nasal Cannula 01/11/23 07:13 36.6 C 108 H 16 107/59 L 94 Nasal Cannula 3 Laboratory Results Short CBC 01/11/23 Range/Units 07:46 WBC 11.87 H (4.8-10.8) K/ul Hgb 9.0 L (12.0-16.0) g/dl Hct 26.5 L (37.0-47.0) % Plt Count 349 (130-400) K/uL BMP 01/11/23 07:46 Sodium 134 L Potassium 4.1 Chloride 103 Carbon Dioxide 25 BUN 13 Creatinine 0.50 L Glucose 111 H Calcium 8.5 L
[2023-01-11] MEDS ORDERED: oxyCODONE/ACETAMINOPHEN 5mg/325mg TAB PO PRN (18:14)
[2023-01-11] MEDS: NIFEdipine EXTENDED REL 30 MG TABCR PO SCH (20:57)
[2023-01-11] MEDS: SIMVASTATIN 40 MG TAB PO SCH (20:58)
[2023-01-11] MEDS: DOCUSATE SODIUM/SENNA 50/8.6MG TAB PO SCH (20:58)
--- NOTE | 2023-01-12 07:55 | Communication Note ---
Date of Service: January 12, 2023 ASTP by daughter concerning some bruising down the LLE. Pt currently awake and alert. States she's having difficulty moving the LE due to some pain and weakness. Ecchymosis noted posteriorly. This is most likely due to surgical procedure of which I discussed with patients daughter yesterday. Continue PT/OT. WBAT. Pt will need Rehab facility prior to returning home. Pt in agreement. (Also discussed with daughter yesterday) Continue current plans for follow up.
--- NOTE | 2023-01-12 08:07 | Electrocardiogram Report ---
Test Reason : Blood Pressure : / mmHG Vent. Rate : 113 BPM Atrial Rate : 113 BPM P-R Int : 158 ms QRS Dur : 082 ms QT Int : 324 ms P-R-T Axes : 084 075 064 degrees QTc Int : 444 ms Sinus tachycardia Otherwise normal ECG When compared with ECG of 09-JAN-2023 22:44, Premature supraventricular complexes are no longer Present Confirmed by Freedom Lux ([id number] on 01/12/2023 8:07:39 AM Referred By: REFERRED SELF Confirmed By:Freedom Lux
[2023-01-12 08:38] LABS: Hematocrit (blood only) 27.9 % (37.0-47.0); Hemoglobin 9.3 g/dl (12.0-16.0); Mean Corpuscular Hemoglobin 30.9 pg (25.0-34.0); Mean Corpuscular Hgb Conc 33.3 g/dL (32.0-36.0); Mean Corpuscular Volume 92.7 fL (80.0-100.0); Mean Platelet Volume 9.7 fL (9.4-12.4); Platelet Count 410 K/uL (130-400); RDW Coefficient of Variation 15.3 % (11.5-14.5); RDW Standard Deviation 51.3 fL (36.4-46.3); Red Blood Count 3.01 M/uL (4.20-5.40); White Blood Count 10.44 K/ul (4.8-10.8)
[2023-01-12 09:00] LABS: Calcium 8.6 mg/dl (8.6-10.3); Potassium 3.4 mmol/L (3.5-5.1)
[2023-01-12] MEDS ORDERED: LOSARTAN POTASSIUM 50 MG TAB PO SCH (09:00)
[2023-01-12 09:06] LABS: BUN Creatinine Ratio 20.5 (10-20); Creatinine Clr Calc Pharmacy 99.1 ml/min; Est GFR (African American) 108.2 ml/min; Est GFR (Non-African American) 93.3 ml/min
[2023-01-12] MEDS: PANTOprazole 40 MG TAB PO SCH (09:07)
[2023-01-12] MEDS: ASPIRIN 81 MG ECTAB PO SCH ×2 (09:07→20:12)
[2023-01-12] MEDS: CHOLECALCIFEROL 5,000 UNITS 125 MCG TAB PO SCH (09:08)
[2023-01-12] MEDS: METOPROLOL TARTRATE 25 MG TAB PO SCH ×2 (09:08→20:12)
[2023-01-12] MEDS ORDERED: POTASSIUM CHLORIDE CRTAB 20 MEQ TABCR PO ONE (09:10)
[2023-01-12] MEDS: FUROSEMIDE 20 MG TAB PO SCH (16:18)
[2023-01-12] MEDS ORDERED: MELATONIN 3 MG TAB PO PRN (16:23)
--- NOTE | 2023-01-12 16:45 | Hospitalist Progress Note ---
Date of Service January 12, 2023 Assessment & Plan (1) Closed left hip fracture: Plan: Closed left hip fracture S/P IM nail on 01/07 by Postoperative acute blood loss anemia Continue tramadol as needed Appreciate orthopedics input Continue PT OT Needs follow-up with orthopedics upon discharge Bowel regimen to prevent constipation Waiting for rehab placement Possible UTI--Likely contaminated sample Urine Cx:Mixed Candy Blood culture: Negative to date Empirically received Cefepime Monitor off antibiotics Hypokalemia Replace electrolytes as needed Sinus tachycardia Likely secondary to pain/Physiological Adjusted Meds Monitor (2) HTN (hypertension): Plan: Blood pressure low Adjusted medications Monitor BP (3) COPD (chronic obstructive pulmonary disease): Plan: chronic, stable. Not typically on oxygen. No respiratory symptoms. 60 pack year smoking history. Declines inhaler therapy Wean off of supplemental oxygen to keep saturations 88 to 92% as able Monitor (4) GERD (gastroesophageal reflux disease): Plan: Continue pantoprazole Plan Disposition Rehab when accepted DVT Px: Aspirin BID for DVT px per ortho CODE STATUS Full code Admission and Anticipated Discharge Date Admission Date: January 05, 2023 Subjective Patient is seen and examined at bedside States having pain of left hip at surgical site, associated with some swelling No other new complaints Heart rate is better controlled with blood pressure medication adjustment Discussed with patient's daughter at bedside Denies any chest pain, shortness of breath, dizziness, nausea, abdominal pain Review of Systems Review of Systems: All systems reviewed & are unremarkable except as noted in Subjective Physical Exam Physical Exam: Physical Exam: Vitals signs as noted above General Appearance: Elderly, no apparent distress Head: normocephalic, Atraumatic Eyes: normal inspection, EOMI Neck: supple, Trachea midline Respiratory/Chest: Decreased breath sounds, Basal Crackles, No accessory muscle use Cardiovascular: S1, S2, No murmur Abdomen/GI:Soft, Non tender, Bowel sounds present Extremities/Musculoskeletal:normal inspection, Trace edema, left hip surgical site in dressing Neurologic/Psych:AAOX3, grossly no focal neurological deficits Skin: normal color, warm, + multiple bruises Results & Data Results & Data Vital Signs (Past 12 Hours) Vital Signs Temp Pulse Resp BP Pulse Ox O2 Del Method O2 Flow Rate 01/12/23 15:04 37.1 C 107 H 18 127/61 96 Nasal Cannula 1.5 01/12/23 11:53 98 H 94 Nasal Cannula 1.5 01/12/23 07:25 Nasal Cannula 1 01/12/23 09:04 118 H 114/58 L 93 Nasal Cannula 1 01/12/23 07:37 36.4 C L 118 H 16 119/58 L 92 Nasal Cannula 1 Laboratory Results Short CBC 01/12/23 Range/Units 08:01 WBC 10.44 (4.8-10.8) K/ul Hgb 9.3 L (12.0-16.0) g/dl Hct 27.9 L (37.0-47.0) % Plt Count 410 H (130-400) K/uL BMP 01/12/23 08:01 Sodium 136 Potassium 3.4 L Chloride 101 Carbon Dioxide 25 BUN 9 Creatinine 0.44 L Glucose 105 H Calcium 8.6 (1) Closed left hip fracture Encounter type: initial encounter Qualified Code(s): S72.002A - Fracture of unspecified part of neck of left femur, initial encounter for closed fracture
[2023-01-12] MEDS: SIMVASTATIN 40 MG TAB PO SCH (20:12)
[2023-01-12] MEDS: DOCUSATE SODIUM/SENNA 50/8.6MG TAB PO SCH (20:14)
[2023-01-12] MEDS ORDERED: NIFEdipine EXTENDED REL 30 MG TABCR PO SCH (21:00)
[2023-01-12] MEDS: ACETAMINOPHEN 325 MG TAB PO PRN (22:21)
[2023-01-13] MEDS ORDERED: NIFEdipine EXTENDED REL 30 MG TABCR PO STA (02:03)
[2023-01-13] MEDS ORDERED: MAGNESIUM SULFATE / D5W 1 GM/100 ML BAG IV ONE (02:05)
[2023-01-13] MEDS ORDERED: POTASSIUM CHLORIDE CRTAB 20 MEQ TABCR PO STA (02:42)
[2023-01-13 03:21] LABS: Basophils # (auto) 0.04 K/uL (0-0.2); Basophils % (auto) 0.4 %; Eosinophils # (auto) 0.37 K/uL (0-0.50); Eosinophils % (auto) 4.1 %; Hematocrit (blood only) 26.4 % (37.0-47.0); Hemoglobin 8.8 g/dl (12.0-16.0); Immature Granulocytes # (auto) 0.24 K/uL (0.01-0.20); Immature Granulocytes % (auto) 2.7 %; Lymphocytes # (auto) 1.89 K/uL (1.2-3.4); Lymphocytes % (auto) 20.9 %; Mean Corpuscular Hemoglobin 31.1 pg (25.0-34.0); Mean Corpuscular Hgb Conc 33.3 g/dL (32.0-36.0); Mean Corpuscular Volume 93.3 fL (80.0-100.0); Mean Platelet Volume 10.1 fL (9.4-12.4); Monocytes # (auto) 0.97 K/uL (0.11-0.59); Monocytes % (auto) 10.7 %; Neutrophils # (auto) 5.52 K/uL (1.40-6.50); Neutrophils % (auto) 61.2 %; Nucleated RBC # (auto) 0.02 K/uL (0-0.12); Nucleated RBC % (auto) 0.2 %; Platelet Count 410 K/uL (130-400); RDW Coefficient of Variation 15.3 % (11.5-14.5); RDW Standard Deviation 51.8 fL (36.4-46.3); Red Blood Count 2.83 M/uL (4.20-5.40); White Blood Count 9.03 K/ul (4.8-10.8)
[2023-01-13 03:37] LABS: Calcium 8.1 mg/dl (8.6-10.3); Creatinine Clr Calc Pharmacy 96.9 ml/min; Est GFR (African American) 107.4 ml/min; Est GFR (Non-African American) 92.7 ml/min; Magnesium 1.6 mg/dl (1.7-2.4); Potassium 3.7 mmol/L (3.5-5.1)
[2023-01-13] MEDS: ACETAMINOPHEN 325 MG TAB PO PRN (08:33)
[2023-01-13] MEDS: METOPROLOL TARTRATE 25 MG TAB PO SCH (08:34)
[2023-01-13] MEDS: ASPIRIN 81 MG ECTAB PO SCH (08:34)
[2023-01-13] MEDS: PANTOprazole 40 MG TAB PO SCH (08:34)
[2023-01-13] MEDS: CHOLECALCIFEROL 5,000 UNITS 125 MCG TAB PO SCH (08:34)
[2023-01-13] MEDS: FUROSEMIDE 20 MG TAB PO SCH (08:35)
--- NOTE | 2023-01-13 14:18 | Discharge Summary ---
Discharge Summary Date of Service January 13, 2023 Notes For Next Care Provider Admitted for hip fracture, s/p IM nailing on 01/07. D/c to [facility] for rehab. BP meds adjusted as below Medication Changes From Visit Started on Toprol 12.5mg BID, losartan discontinued Admission HPI Per Admitting Provider 82 yo F presents after a fall from standing height at home and subsequent left hip fracture. On her indoor porch and slipped in her clogs on her hardwood floor. 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 She experienced no LOC. She denies any recent chest pain, shortness of breath, UTI symptoms, abd pain or other issues. Did she hit her head? What is her typical functional status? Recently switched from lisinopril to losartan Admission Exam Per Admitting Provider CONSTITUTIONAL: WNWD, vitals as above, generally well-appearing, NAD EYES: EOMI bilaterally, PERRL, normal conjunctivae, no scleral icterus ENT: external ear and nose normal, oropharynx clear, no TM abnormality, no maxillary or ethmoid sinus tenderness NECK: trachea midline, no lymphadenopathy, normal thyroid RESPIRATORY: clear to auscultation bilaterally, no crackles, rales or wheezes, normal respiratory effort CARDIOVASCULAR: regular rate and rhythm, S1 and 2 heard without murmurs, gallops or rubs, no JVD, no peripheral edema CHEST: inspection of chest was normal GASTROINTESTINAL: normal bowel sounds, soft, nontender,ND , no guarding MUSCULOSKELETAL: strength 5/5 throughout, head is normocephalic and atraumatic, neck supple, normal palpation of chest wall without tenderness SKIN: warm and dry, no rashes NEUROLOGIC: patellar DTRs 2+ bilat. PERRL, EOMI, no facial palsy, no dysarthria. Touch, pain and proprioception normal. CN 2-12 grossly intact, no sensory deficit, normal cognition, normal speech, no tremor PSYCHIATRIC: alert cooperative and oriented to person, place and time. Euthymic mood, makes good eye contact, language grossly intact, recent and remote memory grossly intact. Principal Dx & Hospital Course #1 = Principal Diagnosis (1) Closed left hip fracture: Closed left hip fracture S/P IM nail on 01/[address] Roberts Postoperative acute blood loss anemia, stabilized Continue tylenol as needed Appreciate orthopedics input Continue PT/OT Needs follow-up with orthopedics upon discharge Bowel regimen to prevent constipation Discharged to [facility] for rehab Possible UTI--Likely contaminated sample Urine Cx:Mixed Candy Blood culture: Negative to date Empirically received Cefepime Monitor off antibiotics Hypokalemia Replace electrolytes as needed Sinus tachycardia Likely secondary to pain/Physiological Started on metoprolol 12.5mg BID Continue to monitor blood pressure at rehab (2) HTN (hypertension): Blood pressure low, elevated HR Continue nifedipine 60mg, started on metoprolol tartrate 12.5mg BID. Losartan discontinued Monitor BP (3) COPD (chronic obstructive pulmonary disease): chronic, stable. Not typically on oxygen. No respiratory symptoms. 60 pack year smoking history. Declines inhaler therapy Wean off of supplemental oxygen to keep saturations 88 to 92% as able Monitor (4) GERD (gastroesophageal reflux disease): Continue pantoprazole Discharge Exam Gen: WD/WN, NAD, resting comfortably in bed, A&Ox3 HEENT: Normocephalic, atraumatic, conjunctivae moist, sclerae anicteric, mucous membranes moist Lung: Clear to Auscultation bilaterally, no wheezes/rales/rhonchi Heart: Regular rate, regular rhythm, no murmurs, rubs, or gallops Abdomen: Soft, NT, ND +BS x 4 Extremities: Left lateral hip TTP with some deformity noted. Sensation intact. Mild edema Skin: Warm, no rash Updated Medication List Medication Instructions Recorded Confirmed Type aspirin 81 mg capsule 81 mg PO DAILY 01/05/23 01/05/23 History nifedipine 60 mg tablet,extended 60 mg PO QPM 01/05/23 01/05/23 History release 24 hr pantoprazole 20 mg tablet,delayed 20 mg PO QAM 01/05/23 01/05/23 History release simvastatin 40 mg tablet 40 mg PO HS 01/05/23 01/05/23 History aspirin 81 mg tablet,delayed 81 mg PO BID #56 tabs 01/13/23 Rx release metoprolol tartrate 25 mg tablet 12.5 mg PO BID #60 tabs 01/13/23 Rx Hospital Stay Data Consultations 01/05/23 18:31 ED Decision to Admit Stat 01/05/23 18:44 Consult Orthopedic Surgery Routine 01/05/23 20:57 Consult Anesthesiology Routine Procedures Performed Operation Date: 01/07/23 14:00 Actual Procedures p Left Hip Intramedullary Nail(Left) - Ritesh Roberts, DO Diagnostic Imagining Performed 01/05/23 17:23 CT head/brain wo con Stat 01/07/23 14:00 FL hip LT 2-3V Routine Pending Results Patient Have Any Pending Studies at Discharge: No Discharge Instructions Given to Patient (Per Discharging Provider) MEDICATION CHANGES: Aspirin 81mg twice daily x 4 weeks per ortho to prevent a blood clot. You were started on metoprolol tartrate 12.5mg by mouth twice daily for fast heart rate. Your losartan has been discontinued. Continue tylenol as needed for pain and tramadol as needed for severe pain. SUMMARY OF TEST RESULTS: You were admitted to hospital for fall and found to have closed left hip fracture. Underwent IM nailing surgery by Dr. Roberts on 01/07. Please refer to their instructions below for weight bearing and medication. Continue monitoring blood pressure and heart rate in outpatient setting. Wean off of supplemental oxygen to keep saturations 88 to 92% as able PENDING TEST RESULTS: None RECOMMENDATIONS FOR FOLLOW-UP: Follow up with PCP and orthopedic surgery as scheduled. Continue medication regimen as scheduled aside from changes noted above. OTHER INSTRUCTIONS: Seek medical attention if you have: * temperature above 101 * chest pain or trouble breathing * abdominal pain, nausea, vomiting * diarrhea, dark stools or bloody stools * any unanswered questions or concerns Call 911 if symptoms are severe. Please take good care of yourself. Call if you have any questions or problems. You can reach a [facility] hospitalist on duty at [facility] 24 hours a day by calling [phone]. Total Time Total Time Spent Total Time Spent (In Minutes): 60 Supervising Physician Co-Signing Physician Notes Patient is seen and examined on day of discharge. States feeling better today. Left hip pain at surgical site is controlled. Offers no new complaints today. Plan to be discharged to SNF today. I personally reviewed the chart today. Advised to follow-up with orthopedics upon discharge. Blood pressure medications adjusted for hypertension. Advised to monitor blood pressure at home and discuss with primary care physician for further adjustment as needed. Sinus tachycardia improved. I personally reviewed the record. Patient is interviewed and examined at bedside. Patient's care is coordinated with Elma Sharpe PA-C. Please refer to the documentation above for details of patient's presentation and for discussion of other issues.
[2023-01-13] MEDS ORDERED: NIFEdipine EXTENDED REL 30 MG TABCR PO SCH (21:00)
== END 2023-01-13 14:57 | DRG 481 ==
LOC: ED 17:07 → SUATTDRO 18:44 → 3N 18:44